=== PATIENT | male | born 1950 | race African-American/Black ===

== ENCOUNTER 2017-03-12 11:58 | Observation (INO) ==
[2017-03-12 12:36] LABS: Basophils # 0.1 10*3/uL (0.0-0.2); Basophils % 0.7 % (0.0-0.8); Eosinophils # 0.2 10*3/uL (0.0-0.87); Eosinophils % 1.9 % (0.00-10.9); Hemoglobin 13.1 GM/DL (14.0-18.0); Immature Granulocytes % 0.6 %; Immature Granulocytes Absolute 0.07 #; Lymphocytes # 3.7 10*3/uL (1.4-4.0); Lymphocytes % 30.7 % (21.2-54.2); Mean Corpuscular Hemoglobin 29 PG (27-34); Mean Corpuscular Volume 91.3 FL (87-102); Mean Platelet Volume 10.2 FL (9.6-12.0); Monocytes # 0.9 10*3/uL (0.11-0.8); Monocytes % 7.5 % (1.7-12.7); Neutrophils # 7.1 10*3/uL (1.4-7.4); Neutrophils % 58.6 % (38.7-73.9); Platelet Count 269 T/CUMM (130-400); Red Blood Count 4.49 MC/CUMM (3.8-5.5); Red Cell Distribution Width 13.2 % (9.3-17.3); White Blood Count 12.2 T/CUMM (4-12)
--- NOTE | 2017-03-12 12:37 | EKG Report ---
Stationary ECG Study [facility] Test Date: 03/12/2017 12:08:52 PM Pat Name: KENYON GRAMAJO Department: Room: Gender: M Social Science Analyst: Eddie Dudley : 1950 Requested by: Mark Stevens Order Number: [id number] Reading MD: HAYDEN ALLEN Intervals [place] Rate: 114 P: -83 [place]: 222 QRS: 34 QRSD: 150 T: -90 QT: 390 QTc: 458 Interpretive Statements ATRIAL TACHYCARDIA WITH FIRST DEGREE AV BLOCK NONSPECIFIC INTRAVENTRICULAR CONDUCTION BLOCK LOW VOLTAGE IN THE LIMB LEADS Electronically Signed On 03-14-17 07:55:17 CDT by HAYDEN ALLEN [email or web address]
[2017-03-12 12:48] LABS: INR 1.2; PT Patient Result 12.7 SECS
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
[2017-03-12 13:09] LABS: Partial Thromboplastin Time 43.2 SECS (0-40)
[2017-03-12 13:18] LABS: Free T4 (Free Thyroxine) 1.14 NG/DL (0.76-1.46); Magnesium 1.7 MG/DL (1.8-2.4)
[2017-03-12 13:23] LABS: Alanine Aminotransferase 69 U/L (16-61); Albumin 3.9 G/DL (3.4-5.0); Alkaline Phosphatase 65 U/L (45-117); Aspartate Amino Transferase 34 U/L (0-37); Bilirubin,Total < 0.39 MG/DL (0.2-1.0); Blood Urea Nitrogen 20 MG/DL (7-18); Calcium 9.5 MG/DL (8.5-10.1); Glucose 258 MG/DL (74-106); Osmolality,Calculated 288.5 MOS/KG (273-304); Potassium 4.7 MMOL/L (3.5-5.1); Sodium 139 MMOL/L (136-145); Total Protein 7.7 G/DL (6.4-8.3); Troponin I Only < 0.015 NG/ML (0.00-0.045)
[2017-03-12] MEDS ORDERED: DILTIAZEM 50 MG/10 ML VIAL IV STA (14:30)
[2017-03-12] MEDS ORDERED: DILTIAZEM 50 MG/10 ML VIAL IV ONE (14:34)
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
[2017-03-12] MEDS ORDERED: BUTALBITAL/ACETAMIN/CAFFEINE 50-325-40 MG TABLET PO PRN (15:16)
[2017-03-12] MEDS ORDERED: ACETAMINOPHEN 325 MG TABLET PO PRN (15:16)
[2017-03-12] MEDS ORDERED: ONDANSETRON 4 MG/2 ML VIAL IV PRN (15:17)
[2017-03-12] MEDS ORDERED: MAGNESIUM SULF RIDER 4 GM in PREMIX 1 EACH IV PRN (15:17)
[2017-03-12] MEDS ORDERED: ZALEPLON 5 MG CAPSULE PO PRN (15:17)
[2017-03-12] MEDS ORDERED: DOCUSATE SODIUM 100 MG CAPSULE PO PRN (15:17)
[2017-03-12] MEDS ORDERED: MAGNESIUM SULF RIDER 2 GM in PREMIX 1 EACH IV PRN (15:17)
--- NOTE | 2017-03-12 15:24 | Cardiology History & Physical ---
Assessment and Plan (1) Atrial flutter Status: Acute Assessment and plan: 1. 66-year-old BM with hypertension, dyslipidemia, IDDM, asthma/COPD recurrent atrial flutter for the last 9 months ("they shocked me twice"), incidentally noted to have atrial flutter with RVR at the [place] [facility] today, with heart rate between 115 120 bpm. 2. Given he is confident that he has been taking his Pradaxa, we can perform cardioversion today, and observe him on telemetry overnight. 3. Increase amiodarone to 200 mg twice daily, and give slow intravenous infusion of 0.5 L/min overnight. He is not actively wheezing but has a very prolonged expiratory phase 4. Give Lasix 1 IV I discussed with him the benefits of cardioversion versus attempts at rate control. He is agreeable to cardioversion as he will get better more quickly with this route. Current Visit: Yes (2) Chest pressure Status: Acute Current Visit: Yes History of Present Illness Chief complaint: tachycardia History of present illness: Mr. Alcala is a 66 year old male who is being seen for routine appointment at [facility]. He was noted to have tachycardia and was sent to the ER for evaluation. He has atrial flutter with rate between 10/11/2000 20. He reports he has [facility] in the [facility] [place] He does notice in the last 2-3 days he has had increased dyspnea on exertion "I have been using the nebulizer more". He has chronic orthopnea for years. He has no chest discomfort other than "I had 5 seconds of discomfort this morning at the clinic". He reports he takes his Pradaxa regularly for many months now. He was told he had the option of getting a procedure ( presumably ablation) at a later time of his flutter recurs. Home Medications Medication Instructions Recorded Confirmed Type Acetaminophen Tab [Tylenol Tab] 650 mg PO BID PRN 03/12/17 03/12/17 History Amiodarone Tab [Cordarone Tab] 200 mg PO DAILY 03/12/17 03/12/17 History Aspirin EC Tab 81 mg PO DAILY 03/12/17 03/12/17 History Atorvastatin Calcium 40 mg PO DAILY 03/12/17 03/12/17 History Budesonide/Formoterol 160-4.5 2 puff INH BID 03/12/17 03/12/17 History [Symbicort 160-4.5] Butalbital/Acet/Caff 50-325-40 1 tablet PO Q4H PRN 03/12/17 03/12/17 History [Fioricet 50-325-40 mg Tablet] Cyclobenzaprine HCl 5 mg PO DAILY 03/12/17 03/12/17 History Dabigatran [Pradaxa] 150 mg PO BID 03/12/17 03/12/17 History Fluoxetine HCl 10 mg PO DAILY 03/12/17 03/12/17 History Furosemide Tab [Lasix Tab] 40 mg PO DAILY 03/12/17 03/12/17 History Gabapentin 600 mg PO BID 03/12/17 03/12/17 History Insulin Aspart [NovoLOG] 15 unit SUBCUT TID 03/12/17 03/12/17 History Insulin Detemir [Levemir] 22 unit SUBCUT AC BREAKFAST 03/12/17 03/12/17 History Insulin Detemir [Levemir] 22 unit SUBCUT BEDTIME 03/12/17 03/12/17 History Metoprolol Tartrate Tab [Lopressor 50 mg PO BID 03/12/17 03/12/17 History Tab] Montelukast Tab [Singulair Tab] 10 mg PO DAILY 03/12/17 03/12/17 History Omeprazole [Prilosec] 40 mg PO DAILY 03/12/17 03/12/17 History Tiotropium Inhalation [Spiriva 18 mcg INH DAILY 03/12/17 03/12/17 History Handihaler] metFORMIN [Glucophage] 500 mg PO BID 03/12/17 03/12/17 History Allergies Allergy/AdvReac Type Severity Reaction Status Date / Time No Known Allergies Allergy Verified 03/12/17 11:59 Medical,Surgical,& Family Hx - Medical History Cardio: History of: Cardiac Dysrhythmia (afib), Hypertension Endocrine: History of: Diabetes Mellitus (IDDM), Diabetes Mellitus (NIDDM) Respiratory: History of: COPD - Social History Smoking Status: Never smoker Cardiology Physical Exam - Constitutional Vitals: Vital Signs Temp Pulse Resp BP Pulse Ox 97.2 F L 122 H 18 119/79 95 03/12/17 13:00 03/12/17 13:00 03/12/17 13:00 03/12/17 13:00 03/12/17 13:00 Intake and Output 03/11/17 03/12/17 03/12/17 23:59 07:59 15:59 Other: Weight 102.965 kg Patient Weight 03/12/17 23:59 Weight 102.965 kg General appearance: no acute distress, over weight - Head Head exam: Present: normal inspection, normocephalic, atraumatic - Neck Neck exam: Present: normal inspection - Respiratory Respiratory exam: Present: other (Very prolonged expiratory phase). Absent: rhonchi, stridor, wheezes - Cardiovascular Cardiovascular exam: Absent: diastolic murmur, rubs, systolic murmur - GI/Abdominal GI/Abdominal exam: Present: soft. Absent: tenderness - Extremities Exam Extremities exam: Present: other (Trace lower extremity edema) Result/EKG - Labs CBC & BMP: 03/12/17 12:15 03/12/17 12:15 Labs: Laboratory Results - last 24 hr 03/12/17 03/12/17 03/12/17 12:15 12:15 12:15 WBC 12.2 H RBC 4.49 Hgb 13.1 L Hct 41.0 L MCV 91.3 MCH 29 MCHC 32.0 RDW 13.2 Plt Count 269 MPV 10.2 Neut % (Auto) 58.6 Lymph % (Auto) 30.7 [place] % (Auto) 7.5 Eos % (Auto) 1.9 Baso % (Auto) 0.7 Neut # (Auto) 7.1 Lymph # (Auto) 3.7 [place] # (Auto) 0.9 H Eos # (Auto) 0.2 Baso # (Auto) 0.1 Immature Gran % 0.6 Nucleated RBC % 0.0 Immature Gran # 0.07 Nucleated RBCs # 0.00 INR 1.2 PT Patient/Control Mix 12.7 Circ Anticoag PTT 43.2 H Sodium Potassium Chloride Carbon Dioxide Anion Gap BUN Creatinine GFR Calculation BUN/Creatinine Ratio Glucose Calculated Osmolality Calcium Magnesium 1.7 L Total Bilirubin AST ALT Alkaline Phosphatase Troponin I Total Protein Albumin Globulin Albumin/Globulin Ratio Free T4 1.14 TSH 3rd Generation 03/12/17 12:15 WBC RBC Hgb Hct MCV MCH MCHC RDW Plt Count MPV Neut % (Auto) Lymph % (Auto) [place] % (Auto) Eos % (Auto) Baso % (Auto) Neut # (Auto) Lymph # (Auto) [place] # (Auto) Eos # (Auto) Baso # (Auto) Immature Gran % Nucleated RBC % Immature Gran # Nucleated RBCs # INR PT Patient/Control Mix Circ Anticoag PTT Sodium 139 Potassium 4.7 Chloride 104 Carbon Dioxide 28 Anion Gap 11.7 BUN 20 H Creatinine 1.20 GFR Calculation 82 BUN/Creatinine Ratio 16.00 Glucose 258 H Calculated Osmolality 288.5 Calcium 9.5 Magnesium Total Bilirubin < 0.39 AST 34 ALT 69 H Alkaline Phosphatase 65 Troponin I < 0.015 Total Protein 7.7 Albumin 3.9 Globulin 3.8 H Albumin/Globulin Ratio 1.0 L Free T4 TSH 3rd Generation 2.630
[2017-03-12] MEDS ORDERED: AMIODARONE 200 MG TABLET PO SCH (15:30)
[2017-03-12] MEDS ORDERED: NALOXONE 0.4 MG/ML VIAL ONE (16:37)
[2017-03-12] MEDS ORDERED: MIDAZOLAM 10 MG/2 ML VIAL ONE (16:37)
[2017-03-12] MEDS ORDERED: MEPERIDINE 50 MG/1 ML VIAL ONE (16:38)
[2017-03-12] MEDS ORDERED: FLUMAZENIL 0.5 MG/5 ML VIAL IV ONE (16:38)
--- NOTE | 2017-03-12 16:57 | Cardiology Operative Report ---
Date of Procedure:: 03/12/17 Post-op diagnosis: same Procedure: Procedure: DC cardioversion Indication: Persistent atrial flutter with RVR and CHF Anesthetic: Demerol/Versed Description: After patient sedated shock 1-250 J achieved sinus mechanism at 75 bpm. EKG ordered to confirm. Complications: None Anesthesia: moderate conscious sedation Surgeon / Physician: Roel Archibald Band Builder: other Estimated blood loss: minimal Specimens: none sent Condition: stable Disposition: floor
[2017-03-12] MEDS: AMIODARONE INJ 450 MG in DEXTROSE 5% 241 ML IV SCH (19:08)
[2017-03-12] MEDS ORDERED: FUROSEMIDE 40 MG/4 ML VIAL IV ONE (20:06)
[2017-03-12] MEDS ORDERED: DEXTROSE 50% 25 GM/50 ML VIAL IV PRN (20:09)
[2017-03-12] MEDS ORDERED: GLUCAGON 1 MG VIAL IM PRN (20:09)
[2017-03-12] MEDS ORDERED: METOPROLOL TARTRATE 50 MG TABLET PO SCH (21:00)
[2017-03-12] MEDS ORDERED: INSULIN DETEMIR 100 UNIT/ML SUBCUT SCH (21:00)
[2017-03-12] MEDS: IPRATROPIUM 500 MCG/2.5 ML NEB RESP TX SCH (21:02)
[2017-03-12] MEDS: GABAPENTIN 600 MG TABLET PO SCH (21:31)
[2017-03-12] MEDS: metFORMIN 500 MG TABLET PO SCH (21:31)
[2017-03-12] MEDS: METOPROLOL SUCCINATE XL 50 MG TABLET PO SCH (21:31)
[2017-03-12] MEDS: DABIGATRAN 150 MG CAPSULE PO SCH (21:31)
[2017-03-12] MEDS: INSULIN LISPRO 100 UNIT/ML SUBCUT SCH (21:32)
[2017-03-12] MEDS: AMIODARONE 200 MG TABLET PO SCH (21:32)
[2017-03-12] MEDS: BUDESONIDE/FORMOTEROL 160-4.5 INHALER 6 GM INH SCH (21:32)
[2017-03-13 04:58] LABS: Basophils % 0.4 % (0.0-0.8); Eosinophils # 0.3 10*3/uL (0.0-0.87); Eosinophils % 2.7 % (0.00-10.9); Hematocrit 37.3 VOL% (42.0-52.0); Hemoglobin 11.9 GM/DL (14.0-18.0); Immature Granulocytes % 0.5 %; Immature Granulocytes Absolute 0.05 #; Lymphocytes # 2.8 10*3/uL (1.4-4.0); Lymphocytes % 29.2 % (21.2-54.2); Mean Corpuscular HGB Conc 31.9 GM/DL (32-36); Mean Corpuscular Hemoglobin 29 PG (27-34); Mean Corpuscular Volume 91.4 FL (87-102); Mean Platelet Volume 10.6 FL (9.6-12.0); Monocytes # 1.1 10*3/uL (0.11-0.8); Monocytes % 11.7 % (1.7-12.7); Neutrophils # 5.4 10*3/uL (1.4-7.4); Neutrophils % 55.5 % (38.7-73.9); Platelet Count 237 T/CUMM (130-400); Red Blood Count 4.08 MC/CUMM (3.8-5.5); Red Cell Distribution Width 13.2 % (9.3-17.3); White Blood Count 9.7 T/CUMM (4-12)
[2017-03-13 05:46] LABS: Alanine Aminotransferase 57 U/L (16-61); Albumin 3.4 G/DL (3.4-5.0); Alkaline Phosphatase 53 U/L (45-117); Aspartate Amino Transferase 26 U/L (0-37); Bilirubin,Total < 0.39 MG/DL (0.2-1.0); Blood Urea Nitrogen 23 MG/DL (7-18); Calcium 8.8 MG/DL (8.5-10.1); Glucose 82 MG/DL (74-106); Magnesium 2.3 MG/DL (1.8-2.4); Potassium 3.8 MMOL/L (3.5-5.1); Sodium 143 MMOL/L (136-145); Total Protein 6.5 G/DL (6.4-8.3)
[2017-03-13] MEDS: IPRATROPIUM 500 MCG/2.5 ML NEB RESP TX SCH ×3 (07:37→14:05)
[2017-03-13] MEDS ORDERED: NON-FORMULARY MEDICATION (Omeprazole [Prilosec] 40 MG) PO SCH (09:00)
[2017-03-13] MEDS ORDERED: FUROSEMIDE 40 MG TABLET PO SCH (09:00)
[2017-03-13] MEDS ORDERED: ASPIRIN EC 81 MG TABLET PO SCH (09:00)
[2017-03-13] MEDS ORDERED: INSULIN GLARGINE 100 UNIT/ML SUBCUT SCH (09:00)
[2017-03-13] MEDS ORDERED: ATORVASTATIN 40 MG TABLET PO SCH (09:00)
[2017-03-13] MEDS ORDERED: MONTELUKAST 10 MG TABLET PO SCH (09:00)
[2017-03-13] MEDS ORDERED: FLUoxetine 10 MG CAPSULE PO SCH (09:00)
[2017-03-13] MEDS ORDERED: PANTOPRAZOLE 40 MG TABLET PO SCH (09:00)
[2017-03-13] MEDS ORDERED: CYCLOBENZAPRINE 10 MG TABLET PO SCH (09:00)
--- NOTE | 2017-03-13 09:11 | EKG Report ---
Stationary ECG Study [facility] Test Date: 03/13/2017 8:05:19 AM Pat Name: KENYON GRAMAJO Department: Room: 276 Gender: M [employer] Assistant Football Coach: JOAO : 1950 Requested by: Roel Flores Order Number: [id number] Reading MD: HAYDEN ALLEN Intervals [place] Rate: 69 P: 60 [place]: 184 QRS: 15 QRSD: 88 T: 31 QT: 382 QTc: 402 Interpretive Statements SINUS RHYTHM NONSPECIFIC T-WAVE ABNORMALITY Electronically Signed On 03-14-17 08:22:07 CDT by HAYDEN ALLEN [email or web address]
--- NOTE | 2017-03-13 09:24 | EKG Report ---
Stationary ECG Study [facility] Test Date: 03/12/2017 5:00:20 PM Pat Name: KENYON GRAMAJO Department: Room: 276 Gender: M Personnel Clerk: : 1950 Requested by: Roel Flores Order Number: [id number] Thelma MD: HAYDEN ALLEN Intervals [place] Rate: 81 P: 70 [place]: 160 QRS: 43 QRSD: 90 T: 62 QT: 315 QTc: 352 Interpretive Statements SINUS RHYTHM NONSPECIFIC T WAVE ABNORMALITY Electronically Signed On 03-14-17 08:18:15 CDT by HAYDEN ALLEN [email or web address]
[2017-03-13] MEDS: DABIGATRAN 150 MG CAPSULE PO SCH (09:36)
[2017-03-13] MEDS: metFORMIN 500 MG TABLET PO SCH (09:36)
[2017-03-13] MEDS: GABAPENTIN 600 MG TABLET PO SCH (09:38)
[2017-03-13] MEDS: AMIODARONE 200 MG TABLET PO SCH (09:39)
[2017-03-13] MEDS: INSULIN LISPRO 100 UNIT/ML SUBCUT SCH ×2 (09:43→14:34)
--- NOTE | 2017-03-13 11:29 | Discharge Summary ---
Hospital Course - Hospital Course Hospital Course: Mr. Alcala was admitted yesterday evening with atrial flutter and RVR which was found incidentally, but he did have noticed some increased dyspnea on exertion when history was taken. I cardioverted him to normal sinus rhythm yesterday evening and he is maintained throughout the night. I gave him some IV amiodarone at 0.5 mg/h during the night and increase his amiodarone to 200 mg twice daily. I placed him on Toprol 50 minutes twice daily to try to help maintain sinus. Given he has been cardioverted twice in the last 9 months previously we will need to have him see [facility] tractor engine [facility] in the next couple weeks to decide if they want to make any further adjustments, to note if he is still in rhythm. He reports that he feels "great" with no complaints. He examining the room without difficulty. Diagnosis - Discharge Diagnosis (1) Atrial flutter Status: Acute (2) Chest pressure Status: Acute Discharge Plan - Discharge Medications No Action Tiotropium Inhalation [Spiriva Handihaler] 18 mcg INH DAILY Montelukast Tab [Singulair Tab] 10 mg PO DAILY metFORMIN [Glucophage] 500 mg PO BID Metoprolol Tartrate Tab [Lopressor Tab] 50 mg PO BID Insulin Aspart [NovoLOG] 15 unit SUBCUT TID Insulin Detemir [Levemir] 22 unit SUBCUT AC BREAKFAST Gabapentin 600 mg PO BID Fluoxetine HCl 10 mg PO DAILY Dabigatran [Pradaxa] 150 mg PO BID Cyclobenzaprine HCl 5 mg PO DAILY Budesonide/Formoterol 160-4.5 [Symbicort 160-4.5] 2 puff INH BID Butalbital/Acet/Caff 50-325-40 [Fioricet 50-325-40 mg Tablet] 1 tablet PO Q4H PRN PRN Reason: Headache Acetaminophen Tab [Tylenol Tab] 650 mg PO BID PRN PRN Reason: Pain Amiodarone Tab [Cordarone Tab] 200 mg PO DAILY Omeprazole [Prilosec] 40 mg PO DAILY Insulin Detemir [Levemir] 22 unit SUBCUT BEDTIME Furosemide Tab [Lasix Tab] 40 mg PO DAILY Atorvastatin Calcium 40 mg PO DAILY Aspirin EC Tab 81 mg PO DAILY - Follow Up or Referral - Forms/Instructions Exam - Constitutional Vitals: Period Temp Pulse Resp BP Sys/Asencio Pulse Ox Last 24 Hr 97.1 F-98.2 F 68-123 16-18 99-127/57-93 93-100 General appearance: no acute distress, over weight - Head Head exam: Present: normal inspection, normocephalic, atraumatic - Neck Neck exam: Present: normal inspection - Respiratory Respiratory exam: Absent: rales, stridor, wheezes - Cardiovascular Cardiovascular exam: Present: regular rate and rhythm. Absent: diastolic murmur , rubs - GI/Abdominal GI/Abdominal exam: Present: soft. Absent: tenderness - Extremities Exam Extremities exam: Absent: edema Discharge Results Labs on day of discharge: Labs from last 24 hours 03/13/17 03/13/17 03/13/17 07:38 04:07 04:07 WBC 9.7 RBC 4.08 Hgb 11.9 L Hct 37.3 L MCV 91.4 MCH 29 MCHC 31.9 L RDW 13.2 Plt Count 237 MPV 10.6 Neut % (Auto) 55.5 Lymph % (Auto) 29.2 [place] % (Auto) 11.7 Eos % (Auto) 2.7 Baso % (Auto) 0.4 Neut # (Auto) 5.4 Lymph # (Auto) 2.8 [place] # (Auto) 1.1 H Eos # (Auto) 0.3 Baso # (Auto) 0.0 Immature Gran % 0.5 Nucleated RBC % 0.0 Immature Gran # 0.05 Nucleated RBCs # 0.00 INR PT Patient/Control Mix Circ Anticoag PTT Sodium 143 Potassium 3.8 Chloride 106 Carbon Dioxide 29 Anion Gap 11.8 BUN 23 H Creatinine 1.00 GFR Calculation 118 BUN/Creatinine Ratio 23.00 H Glucose 82 POC Glucose 125 H Calculated Osmolality 287.0 Calcium 8.8 Magnesium 2.3 Total Bilirubin < 0.39 AST 26 ALT 57 Alkaline Phosphatase 53 Troponin I Total Protein 6.5 Albumin 3.4 Globulin 3.1 Albumin/Globulin Ratio 1.0 L Free T4 TSH 3rd Generation 1.810 03/12/17 03/12/17 03/12/17 19:22 12:15 12:15 WBC 12.2 H RBC 4.49 Hgb 13.1 L Hct 41.0 L MCV 91.3 MCH 29 MCHC 32.0 RDW 13.2 Plt Count 269 MPV 10.2 Neut % (Auto) 58.6 Lymph % (Auto) 30.7 [place] % (Auto) 7.5 Eos % (Auto) 1.9 Baso % (Auto) 0.7 Neut # (Auto) 7.1 Lymph # (Auto) 3.7 [place] # (Auto) 0.9 H Eos # (Auto) 0.2 Baso # (Auto) 0.1 Immature Gran % 0.6 Nucleated RBC % 0.0 Immature Gran # 0.07 Nucleated RBCs # 0.00 INR PT Patient/Control Mix Circ Anticoag PTT Sodium 139 Potassium 4.7 Chloride 104 Carbon Dioxide 28 Anion Gap 11.7 BUN 20 H Creatinine 1.20 GFR Calculation 82 BUN/Creatinine Ratio 16.00 Glucose 258 H POC Glucose 170 H Calculated Osmolality 288.5 Calcium 9.5 Magnesium Total Bilirubin < 0.39 AST 34 ALT 69 H Alkaline Phosphatase 65 Troponin I < 0.015 Total Protein 7.7 Albumin 3.9 Globulin 3.8 H Albumin/Globulin Ratio 1.0 L Free T4 TSH 3rd Generation 2.630 03/12/17 03/12/17 12:15 12:15 WBC RBC Hgb Hct MCV MCH MCHC RDW Plt Count MPV Neut % (Auto) Lymph % (Auto) [place] % (Auto) Eos % (Auto) Baso % (Auto) Neut # (Auto) Lymph # (Auto) [place] # (Auto) Eos # (Auto) Baso # (Auto) Immature Gran % Nucleated RBC % Immature Gran # Nucleated RBCs # INR 1.2 PT Patient/Control Mix 12.7 Circ Anticoag PTT 43.2 H Sodium Potassium Chloride Carbon Dioxide Anion Gap BUN Creatinine GFR Calculation BUN/Creatinine Ratio Glucose POC Glucose Calculated Osmolality Calcium Magnesium 1.7 L Total Bilirubin AST ALT Alkaline Phosphatase Troponin I Total Protein Albumin Globulin Albumin/Globulin Ratio Free T4 1.14 TSH 3rd Generation DS: Provider Date of admission: 03/12/17 15:15 Primary care physician: Nicky Orr Attending physician on admission: Roel Prakash Discharging clinician: Roel Prakash
[2017-03-13] MEDS: METOPROLOL SUCCINATE XL 50 MG TABLET PO SCH (11:30)
[2017-03-13] MEDS: BUDESONIDE/FORMOTEROL 160-4.5 INHALER 6 GM INH SCH (11:30)
[2017-03-13 16:21] VITALS: BP 140/70
[2017-03-17] MEDS: AMIODARONE INJ 450 MG in DEXTROSE 5% 241 ML IV SCH (09:51)
== END 2017-03-13 17:08 | disposition home or self-care (01) ==
LOC: N.EDINP 11:58 → N.ED 11:58 → N.TELES 15:42
PROVIDERS: ADMIT Internal Medicine Cardiovascular Disease; ATTEND Internal Medicine Cardiovascular Disease

== ENCOUNTER 2020-08-19 17:18 | Observation (INO) ==
[2020-08-19] MEDS ORDERED: methylPREDNISolone SOD SUC 125 MG/2 ML VIAL IV STA (18:19)
[2020-08-19] MEDS ORDERED: PIPERACILLIN/TAZOBACTAM 3,375 MG in SODIUM CHLORIDE 0.9% 100 ML IV STA (18:19)
[2020-08-19] MEDS ORDERED: ONDANSETRON 4 MG/2 ML VIAL IV STA (18:19)
[2020-08-19] MEDS ORDERED: ALBUTEROL/IPRATROPIUM 3 ML NEB RESP TX STA (18:19)
[2020-08-19 18:38] LABS: Basophils # 0.1 10*3/uL (0.0-0.2); Basophils % 0.6 % (0.0-0.8); Eosinophils # 0.4 10*3/uL (0.0-0.87); Eosinophils % 2.5 % (0.00-10.9); Hematocrit 37.7 VOL% (42.0-52.0); Hemoglobin 11.7 GM/DL (14.0-18.0); Immature Granulocytes % 0.4 %; Immature Granulocytes Absolute 0.07 #; Lymphocytes # 3.9 10*3/uL (1.4-4.0); Lymphocytes % 25.1 % (21.2-54.2); Mean Corpuscular Volume 86.3 FL (87-102); Mean Platelet Volume 10.5 FL (9.6-12.0); Monocytes % 10.4 % (1.7-12.7); Platelet Count 391 T/CUMM (130-400); Red Blood Count 4.37 MC/CUMM (3.8-5.5); Red Cell Distribution Width 13.6 % (9.3-17.3); White Blood Count 15.6 T/CUMM (4-12)
[2020-08-19 18:45] LABS: INR 1.1; PT Patient Result 11.5 SECS (9.8-11.9)
[2020-08-19 18:54] LABS: Alanine Aminotransferase 17 U/L (16-61); Albumin 3.6 G/DL (3.4-5.0); Alkaline Phosphatase 92 U/L (45-117); Aspartate Amino Transferase 12 U/L (0-37); Blood Urea Nitrogen 24 MG/DL (7-18); Calcium 8.8 MG/DL (8.5-10.1); Carbon Dioxide 28 MMOL/L (21-32); Estimated Glom Filtration Rate 76 ML/MIN; Glucose 158 MG/DL (74-106); Osmolality,Calculated 283.5 MOS/KG (273-304); Sodium 139 MMOL/L (136-145); Total Protein 7.5 G/DL (6.4-8.3)
[2020-08-19 20:23] LABS: Bilirubin,Urine Negative (Negative); Blood, Urine Negative (Negative); Glucose,Urine (UA) Negative (Negative); Hyaline Casts,Urine 1 /LPF (0-3); Ketones,Urine Negative (Negative); Mucus,Urine Occasional /LPF (Occasional); Nitrite,Urine Negative (Negative); Protein,Urine Negative; RBC,Urine 2 /HPF (0-4); Squamous Epithelial Cell,Urine Occasional /HPF (0-10); Urine Appearance CLEAR (Clear); Urine Color Yellow (Yellow); Urine Specific Gravity 1.025 (1.001-1.035); Urine Urobilinogen < 2.0 EU/DL (0.2-1.0); WBC,Urine 3 /HPF (0-6)
[2020-08-19] MEDS ORDERED: ACETAMINOPHEN 325 MG TABLET PO PRN (21:05)
[2020-08-19] MEDS ORDERED: DEXTROSE 50% 25 GM/50 ML VIAL IV PRN ×2 (21:05)
[2020-08-19] MEDS ORDERED: GLUCAGON 1 MG VIAL IM PRN ×2 (21:05)
[2020-08-19] MEDS ORDERED: ONDANSETRON 4 MG/2 ML VIAL IV PRN (21:05)
[2020-08-20] MEDS: ALBUTEROL/IPRATROPIUM 3 ML NEB RESP TX SCH ×7 (00:36→23:53)
[2020-08-20] MEDS: SODIUM CHLORIDE 0.9% 1,000 ML IV SCH ×2 (01:12→21:41)
[2020-08-20] MEDS ORDERED: PIPERACILLIN/TAZOBACTAM 3,375 MG in SODIUM CHLORIDE 0.9% 100 ML IV SCH (03:00)
[2020-08-20] MEDS ORDERED: methylPREDNISolone SOD SUC 40 MG/1 ML VIAL IV SCH ×2 (03:00→21:00)
[2020-08-20] MEDS ORDERED: IPRATROPIUM 500 MCG/2.5 ML NEB RESP TX SCH (07:00)
[2020-08-20 08:18] LABS: Basophils % 0.1 % (0.0-0.8); Hematocrit 36.6 VOL% (42.0-52.0); Hemoglobin 11.1 GM/DL (14.0-18.0); Immature Granulocytes % 0.4 %; Immature Granulocytes Absolute 0.06 #; Lymphocytes # 1.1 10*3/uL (1.4-4.0); Lymphocytes % 7.8 % (21.2-54.2); Mean Corpuscular HGB Conc 30.3 GM/DL (32-36); Mean Corpuscular Volume 88.6 FL (87-102); Mean Platelet Volume 10.5 FL (9.6-12.0); Monocytes % 1.2 % (1.7-12.7); Neutrophils % 90.5 % (38.7-73.9); Platelet Count 371 T/CUMM (130-400); Red Blood Count 4.13 MC/CUMM (3.8-5.5); Red Cell Distribution Width 13.5 % (9.3-17.3); White Blood Count 13.7 T/CUMM (4-12)
[2020-08-20 08:43] LABS: Calcium 9.8 MG/DL (8.5-10.1); Osmolality,Calculated 290.8 MOS/KG (273-304); Potassium 4.6 MMOL/L (3.5-5.1)
[2020-08-20] MEDS: INSULIN REGULAR 100 UNIT/ML SUBCUT SCH ×4 (09:01→21:41)
[2020-08-20] MEDS: MONTELUKAST 10 MG TABLET PO SCH (09:01)
[2020-08-20] MEDS: METOPROLOL SUCCINATE XL 25 MG TABLET PO SCH (09:01)
[2020-08-20] MEDS: SPIRONOLACTONE 25 MG TABLET PO SCH (09:01)
[2020-08-20] MEDS: BUDESONIDE/FORMOTEROL 160-4.5 INHALER 6 GM INH SCH ×2 (09:02→21:43)
[2020-08-20] MEDS: GABAPENTIN 600 MG TABLET PO SCH ×2 (09:02→21:41)
[2020-08-20] MEDS: metFORMIN 500 MG TABLET PO SCH ×2 (09:02→21:41)
[2020-08-20] MEDS: FUROSEMIDE 40 MG TABLET PO SCH (09:02)
[2020-08-20] MEDS: DABIGATRAN 150 MG CAPSULE PO SCH ×2 (09:02→21:41)
[2020-08-20] MEDS: AZITHROMYCIN 250 MG TABLET PO SCH (09:11)
[2020-08-20] MEDS: cefTRIAXone 1,000 MG in SYRINGE 1 EACH IV SCH (09:12)
[2020-08-20] MEDS ORDERED: ATORVASTATIN 40 MG TABLET PO SCH (21:00)
[2020-08-21] MEDS: ALBUTEROL/IPRATROPIUM 3 ML NEB RESP TX SCH ×2 (03:59→07:15)
[2020-08-21 07:29] VITALS: BP 134/63
[2020-08-21] MEDS: FUROSEMIDE 40 MG TABLET PO SCH (08:51)
[2020-08-21] MEDS: GABAPENTIN 600 MG TABLET PO SCH (08:51)
[2020-08-21] MEDS: SPIRONOLACTONE 25 MG TABLET PO SCH (08:51)
[2020-08-21] MEDS: MONTELUKAST 10 MG TABLET PO SCH (08:52)
[2020-08-21] MEDS: metFORMIN 500 MG TABLET PO SCH (08:52)
[2020-08-21] MEDS: METOPROLOL SUCCINATE XL 25 MG TABLET PO SCH (08:52)
[2020-08-21] MEDS: DABIGATRAN 150 MG CAPSULE PO SCH (08:52)
[2020-08-21] MEDS: INSULIN REGULAR 100 UNIT/ML SUBCUT SCH (08:52)
[2020-08-21] MEDS: AZITHROMYCIN 250 MG TABLET PO SCH (08:52)
[2020-08-21] MEDS: cefTRIAXone 1,000 MG in SYRINGE 1 EACH IV SCH (08:53)
[2020-08-21] MEDS: BUDESONIDE/FORMOTEROL 160-4.5 INHALER 6 GM INH SCH (08:54)
== END 2020-08-21 13:15 | disposition home or self-care (01) ==
LOC: N.ED 17:18 → N.EDINP 17:18 → N.5E 21:46
PROVIDERS: ADMIT Internal Medicine Geriatric Medicine; ATTEND Internal Medicine Geriatric Medicine

== ENCOUNTER 2021-08-04 17:33 | Inpatient (IN) ==
[2021-08-04] MEDS ORDERED: MORPHINE 2 MG/1 ML SYRINGE IV STA (19:02)
[2021-08-04] MEDS ORDERED: FUROSEMIDE 100 MG/10 ML VIAL IV STA (19:02)
[2021-08-04] MEDS ORDERED: methylPREDNISolone SOD SUC 125 MG/2 ML VIAL IV STA (19:02)
[2021-08-04] MEDS ORDERED: DILTIAZEM 50 MG/10 ML VIAL IV STA ×2 (19:02→19:41)
[2021-08-04] MEDS ORDERED: ONDANSETRON 4 MG/2 ML VIAL IV STA (19:02)
[2021-08-04] MEDS ORDERED: ASPIRIN 325 MG TABLET PO STA (19:02)
[2021-08-04] MEDS ORDERED: ALBUTEROL NEB SOLN 5 MG/ML 20 ML/BOTTLE CONT NEB SCH (19:30)
[2021-08-04] MEDS ORDERED: PIPERACILLIN/TAZOBACTAM 3,375 MG in SODIUM CHLORIDE 0.9% 100 ML IV STA (19:41)
[2021-08-04 19:58] LABS: Basophils # 0.1 10*3/uL (0.0-0.2); Basophils % 0.2 % (0.0-0.8); Eosinophils % 0.1 % (0.00-10.9); Hematocrit 45.8 VOL% (42.0-52.0); Hemoglobin 13.7 GM/DL (14.0-18.0); Immature Granulocytes % 1.1 %; Immature Granulocytes Absolute 0.39 #; Lymphocytes # 4.1 10*3/uL (1.4-4.0); Lymphocytes % 11.4 % (21.2-54.2); Mean Corpuscular HGB Conc 29.9 GM/DL (32-36); Mean Corpuscular Volume 91.2 FL (87-102); Monocytes % 7.2 % (1.7-12.7); Platelet Count 362 T/CUMM (130-400); Red Blood Count 5.02 MC/CUMM (3.8-5.5); Red Cell Distribution Width 12.3 % (9.3-17.3); White Blood Count 36.3 T/CUMM (4-12)
[2021-08-04 20:04] LABS: Albumin 3.8 G/DL (3.4-5.0); Bilirubin,Total 0.4 MG/DL (0.20-1.00); Calcium 10.7 MG/DL (8.5-10.1); Osmolality,Calculated 270.2 MOS/KG (273-304); Potassium 3.8 MMOL/L (3.5-5.1); Total Protein 8.4 G/DL (6.4-8.2)
[2021-08-04 20:07] LABS: PT Patient Result 11.5 SECS (10.5-12.0)
[2021-08-04 20:25] LABS: Bilirubin,Urine Negative (Negative); Blood, Urine Negative (Negative); Glucose,Urine (UA) Negative (Negative); Ketones,Urine Negative (Negative); Mucus,Urine Occasional /LPF (Occasional); Nitrite,Urine Negative (Negative); Protein,Urine Negative; RBC,Urine 7 /HPF (0-4); Squamous Epithelial Cell,Urine Occasional /HPF (0-10); Urine Appearance CLOUDY (Clear); Urine Color Yellow (Yellow); Urine Specific Gravity 1.019 (1.001-1.035); Urine Urobilinogen < 2.0 EU/DL (0.2-1.0)
[2021-08-04 21:33] LABS: Band Neutrophils 1 % (0-10); Lymphocytes 15 % (20-55); Platelet Estimate Normal; Segmented Neutrophils 77 % (50-85); Total Cells Counted 100
[2021-08-04] MEDS ORDERED: GLUCAGON 1 MG VIAL IM PRN (22:56)
[2021-08-04] MEDS ORDERED: MORPHINE 2 MG/1 ML SYRINGE IV PRN (22:56)
[2021-08-04] MEDS ORDERED: DEXTROSE 50% 25 GM/50 ML VIAL IV PRN (22:56)
[2021-08-04] MEDS ORDERED: ACETAMINOPHEN 325 MG TABLET PO PRN (22:56)
[2021-08-05] MEDS: ALBUTEROL/IPRATROPIUM 3 ML NEB RESP TX SCH ×4 (00:14→20:00)
[2021-08-05 05:42] LABS: Basophils % 0.1 % (0.0-0.8); Hematocrit 40.6 VOL% (42.0-52.0); Hemoglobin 12.7 GM/DL (14.0-18.0); Immature Granulocytes % 0.7 %; Lymphocytes # 1.2 10*3/uL (1.4-4.0); Lymphocytes % 3.9 % (21.2-54.2); Mean Corpuscular HGB Conc 31.3 GM/DL (32-36); Mean Corpuscular Volume 91.2 FL (87-102); Mean Platelet Volume 10.5 FL (9.6-12.0); Monocytes % 3.5 % (1.7-12.7); Neutrophils % 91.8 % (38.7-73.9); Platelet Count 285 T/CUMM (130-400); Red Blood Count 4.45 MC/CUMM (3.8-5.5); Red Cell Distribution Width 12.5 % (9.3-17.3); White Blood Count 29.7 T/CUMM (4-12)
[2021-08-05 05:52] LABS: Calcium 9.7 MG/DL (8.5-10.1); Osmolality,Calculated 285.4 MOS/KG (273-304); Potassium 4.9 MMOL/L (3.5-5.1)
[2021-08-05] MEDS: PIPERACILLIN/TAZOBACTAM 3,375 MG in SODIUM CHLORIDE 0.9% 100 ML IV SCH ×3 (06:22→21:19)
[2021-08-05] MEDS: INSULIN REGULAR 100 UNIT/ML SUBCUT SCH ×2 (08:28→11:45)
[2021-08-05] MEDS ORDERED: PANTOPRAZOLE 40 MG TABLET PO SCH (09:00)
[2021-08-05] MEDS ORDERED: methylPREDNISolone SOD SUC 125 MG/2 ML VIAL IV SCH ×2 (09:00→11:00)
[2021-08-05] MEDS ORDERED: ENOXAPARIN 40 MG/0.4 ML SYRINGE SUBCUT SCH (09:00)
[2021-08-05] MEDS ORDERED: DILTIAZEM CD 120 MG CAPSULE PO SCH (14:03)
[2021-08-05] MEDS ORDERED: ALBUTEROL 2.5 MG/3 ML NEB RESP TX PRN (14:03)
[2021-08-05] MEDS ORDERED: NITROGLYCERIN SL 0.4 MG TABLET SL PRN (14:03)
[2021-08-05] MEDS ORDERED: DEXTROSE 50% 25 GM/50 ML VIAL IV PRN (14:07)
[2021-08-05] MEDS ORDERED: GLUCAGON 1 MG VIAL IM PRN (14:07)
[2021-08-05] MEDS: INSULIN LISPRO 100 UNIT/ML SUBCUT SCH ×3 (16:03→21:14)
[2021-08-05] MEDS: metFORMIN 500 MG TABLET PO SCH (16:03)
[2021-08-05] MEDS: SOTALOL 80 MG TABLET PO SCH (21:13)
[2021-08-05] MEDS: LOSARTAN 25 MG TABLET PO SCH (21:13)
[2021-08-05] MEDS: DABIGATRAN 150 MG CAPSULE PO SCH (21:13)
[2021-08-05] MEDS: PANTOPRAZOLE 40 MG TABLET PO SCH (21:13)
[2021-08-05] MEDS: FLUTICASONE/SALMETEROL 500-50 DISKUS 14 DOSE INH SCH (21:13)
[2021-08-05] MEDS: ATORVASTATIN 40 MG TABLET PO SCH (21:13)
[2021-08-05] MEDS: INSULIN GLARGINE 100 UNIT/ML SUBCUT SCH (21:14)
[2021-08-06] MEDS: ALBUTEROL/IPRATROPIUM 3 ML NEB RESP TX SCH ×4 (00:20→19:17)
[2021-08-06] MEDS: PIPERACILLIN/TAZOBACTAM 3,375 MG in SODIUM CHLORIDE 0.9% 100 ML IV SCH ×3 (04:56→21:25)
[2021-08-06 05:19] LABS: Basophils # 0.1 10*3/uL (0.0-0.2); Basophils % 0.2 % (0.0-0.8); Eosinophils % 0.1 % (0.00-10.9); Hematocrit 41.5 VOL% (42.0-52.0); Hemoglobin 12.9 GM/DL (14.0-18.0); Immature Granulocytes % 0.8 %; Immature Granulocytes Absolute 0.21 #; Lymphocytes # 3.2 10*3/uL (1.4-4.0); Mean Corpuscular HGB Conc 31.1 GM/DL (32-36); Mean Corpuscular Volume 92.4 FL (87-102); Mean Platelet Volume 11.2 FL (9.6-12.0); Monocytes % 7.5 % (1.7-12.7); Neutrophils % 79.4 % (38.7-73.9); Platelet Count 210 T/CUMM (130-400); Red Blood Count 4.49 MC/CUMM (3.8-5.5); Red Cell Distribution Width 12.7 % (9.3-17.3); White Blood Count 26.6 T/CUMM (4-12)
[2021-08-06 05:53] LABS: Hypochromasia 1+; Lymphocytes 9 % (20-55); Microcytosis Slight; Ovalocytes Slight; Platelet Estimate Normal; Segmented Neutrophils 83 % (50-85); Total Cells Counted 100
[2021-08-06 05:57] LABS: Calcium 9.7 MG/DL (8.5-10.1); Potassium 5.7 MMOL/L (3.5-5.1)
[2021-08-06] MEDS ORDERED: FERROUS SULFATE 325 MG TABLET PO SCH (08:00)
[2021-08-06] MEDS ORDERED: NON-FORMULARY MEDICATION (Tiotropium Bromide [Spiriva With Handihaler] 18 mcg Capsule, W/I INH SCH (09:00)
[2021-08-06] MEDS ORDERED: SPIRONOLACTONE 25 MG TABLET PO SCH (09:00)
[2021-08-06] MEDS: DABIGATRAN 150 MG CAPSULE PO SCH ×2 (09:48→21:21)
[2021-08-06] MEDS: MULTIVITAMIN (CENTRUM) TABLET PO SCH (09:48)
[2021-08-06] MEDS: PANTOPRAZOLE 40 MG TABLET PO SCH ×2 (09:48→21:21)
[2021-08-06] MEDS: VERAPAMIL SR 180 MG TABLET PO SCH (09:48)
[2021-08-06] MEDS: MAGNESIUM CHLORIDE 64 MG TABLET PO SCH (09:48)
[2021-08-06] MEDS: metFORMIN 500 MG TABLET PO SCH ×2 (09:48→16:44)
[2021-08-06] MEDS: SOTALOL 80 MG TABLET PO SCH ×2 (09:49→21:21)
[2021-08-06] MEDS: CHOLECALCIFEROL 1,000 UNIT TABLET PO SCH (09:49)
[2021-08-06] MEDS: predniSONE 20 MG TABLET PO SCH (09:49)
[2021-08-06] MEDS: OMEGA 3 ACID ETHYL ESTERS 1 GM CAPSULE PO SCH (09:49)
[2021-08-06] MEDS: INSULIN GLARGINE 100 UNIT/ML SUBCUT SCH ×2 (09:51→21:22)
[2021-08-06] MEDS: FUROSEMIDE 40 MG TABLET PO SCH (09:57)
[2021-08-06] MEDS: FLUTICASONE/SALMETEROL 500-50 DISKUS 14 DOSE INH SCH ×2 (10:53→21:21)
[2021-08-06] MEDS: INSULIN LISPRO 100 UNIT/ML SUBCUT SCH ×7 (10:53→21:22)
[2021-08-06] MEDS ORDERED: MONTELUKAST 10 MG TABLET PO SCH (21:00)
[2021-08-06] MEDS: LOSARTAN 25 MG TABLET PO SCH (21:21)
[2021-08-06] MEDS: ATORVASTATIN 40 MG TABLET PO SCH (21:21)
[2021-08-07] MEDS: ALBUTEROL/IPRATROPIUM 3 ML NEB RESP TX SCH ×3 (00:24→13:40)
[2021-08-07 04:53] LABS: Basophils % 0.1 % (0.0-0.8); Eosinophils % 0.2 % (0.00-10.9); Hematocrit 42.2 VOL% (42.0-52.0); Hemoglobin 12.8 GM/DL (14.0-18.0); Immature Granulocytes % 0.9 %; Immature Granulocytes Absolute 0.19 #; Lymphocytes # 2.9 10*3/uL (1.4-4.0); Lymphocytes % 13.9 % (21.2-54.2); Mean Corpuscular HGB Conc 30.3 GM/DL (32-36); Mean Corpuscular Volume 91.5 FL (87-102); Monocytes % 7.4 % (1.7-12.7); Neutrophils % 77.5 % (38.7-73.9); Platelet Count 310 T/CUMM (130-400); Red Blood Count 4.61 MC/CUMM (3.8-5.5); Red Cell Distribution Width 12.4 % (9.3-17.3); White Blood Count 20.9 T/CUMM (4-12)
[2021-08-07] MEDS: PIPERACILLIN/TAZOBACTAM 3,375 MG in SODIUM CHLORIDE 0.9% 100 ML IV SCH ×2 (05:15→14:40)
[2021-08-07 05:16] LABS: Lymphocytes 15 % (20-55); Platelet Estimate Adequate; Segmented Neutrophils 82 % (50-85); Total Cells Counted 100
[2021-08-07 05:17] LABS: Hypochromasia Slight; Microcytosis Slight
[2021-08-07] MEDS: INSULIN LISPRO 100 UNIT/ML SUBCUT SCH ×6 (07:20→15:10)
[2021-08-07] MEDS ORDERED: BACILLUS COAGULANS CAPLET PO SCH (09:00)
[2021-08-07 09:25] LABS: Osmolality,Calculated 279.5 MOS/KG (273-304); Potassium 3.8 MMOL/L (3.5-5.1)
[2021-08-07] MEDS: INSULIN GLARGINE 100 UNIT/ML SUBCUT SCH (10:05)
[2021-08-07] MEDS: FUROSEMIDE 40 MG TABLET PO SCH (10:21)
[2021-08-07] MEDS: PANTOPRAZOLE 40 MG TABLET PO SCH (10:21)
[2021-08-07] MEDS: OMEGA 3 ACID ETHYL ESTERS 1 GM CAPSULE PO SCH (10:21)
[2021-08-07] MEDS: CHOLECALCIFEROL 1,000 UNIT TABLET PO SCH (10:23)
[2021-08-07] MEDS: SOTALOL 80 MG TABLET PO SCH (10:23)
[2021-08-07] MEDS: VERAPAMIL SR 180 MG TABLET PO SCH (10:24)
[2021-08-07] MEDS: predniSONE 20 MG TABLET PO SCH (10:25)
[2021-08-07] MEDS: DABIGATRAN 150 MG CAPSULE PO SCH (10:25)
[2021-08-07] MEDS: metFORMIN 500 MG TABLET PO SCH ×2 (10:26→15:10)
[2021-08-07] MEDS: MAGNESIUM CHLORIDE 64 MG TABLET PO SCH (10:26)
[2021-08-07] MEDS: MULTIVITAMIN (CENTRUM) TABLET PO SCH (10:28)
[2021-08-07] MEDS: FLUTICASONE/SALMETEROL 500-50 DISKUS 14 DOSE INH SCH (10:33)
[2021-08-07 11:57] VITALS: BP 138/76
== END 2021-08-07 17:40 | disposition home health service (06) | DRG 194 ==
LOC: N.ED 17:33 → N.EDINP 23:31 → N.3E 23:49
PROVIDERS: ADMIT Internal Medicine; ATTEND Internal Medicine

== ENCOUNTER 2021-08-25 17:09 | Inpatient (IN) ==
[2021-08-25] MEDS ORDERED: SODIUM CHLORIDE 0.9% 1,000 ML IV STA (18:01)
[2021-08-25] MEDS ORDERED: cefTRIAXone 1,000 MG in SODIUM CHLORIDE 0.9% 100 ML IV STA (18:01)
[2021-08-25] MEDS ORDERED: methylPREDNISolone SOD SUC 125 MG/2 ML VIAL IV STA (18:02)
[2021-08-25] MEDS ORDERED: ALBUTEROL/IPRATROPIUM 3 ML NEB RESP TX STA (18:02)
[2021-08-25 18:20] LABS: Basophils # 0.1 10*3/uL (0.0-0.2); Basophils % 0.2 % (0.0-0.8); Eosinophils # 0.1 10*3/uL (0.0-0.87); Eosinophils % 0.6 % (0.00-10.9); Hematocrit 41.7 VOL% (42.0-52.0); Hemoglobin 12.5 GM/DL (14.0-18.0); Immature Granulocytes % 0.6 %; Immature Granulocytes Absolute 0.14 #; Lymphocytes # 1.3 10*3/uL (1.4-4.0); Lymphocytes % 6.2 % (21.2-54.2); Mean Corpuscular Volume 94.6 FL (87-102); Monocytes % 5.7 % (1.7-12.7); Neutrophils % 86.7 % (38.7-73.9); Platelet Count 285 T/CUMM (130-400); Red Blood Count 4.41 MC/CUMM (3.8-5.5); Red Cell Distribution Width 13.2 % (9.3-17.3); White Blood Count 21.6 T/CUMM (4-12)
[2021-08-25 18:25] LABS: Albumin 3.3 G/DL (3.4-5.0); Bilirubin,Total 0.5 MG/DL (0.20-1.00); Calcium 10.2 MG/DL (8.5-10.1); Osmolality,Calculated 277.2 MOS/KG (273-304); Potassium 4.1 MMOL/L (3.5-5.1); Total Protein 7.4 G/DL (6.4-8.2)
[2021-08-25 18:30] LABS: Band Neutrophils 7 % (0-10); Hypochromasia Slight; Lymphocytes 6 % (20-55); Platelet Estimate Normal; Polychromasia Slight; Segmented Neutrophils 83 % (50-85); Total Cells Counted 100
[2021-08-25] MEDS ORDERED: GLUCAGON 1 MG VIAL IM PRN (21:41)
[2021-08-25] MEDS ORDERED: ONDANSETRON 4 MG/2 ML VIAL IV PRN (21:42)
[2021-08-25] MEDS ORDERED: guaiFENesin/DM ER 600-30 MG TABLET PO PRN (21:42)
[2021-08-25] MEDS ORDERED: SIMETHICONE CHEW 125 MG TABLET PO PRN (21:42)
[2021-08-25] MEDS ORDERED: DEXTROSE 50% 25 GM/50 ML SYRINGE IV PRN (22:37)
[2021-08-25] MEDS: LEVOFLOXACIN INJ 750 MG/150 ML PREMIX IV SCH (23:49)
[2021-08-26 00:01] LABS: Bilirubin,Urine Negative (Negative); Blood, Urine Negative (Negative); Glucose,Urine (UA) >=500 mg/dL (Negative); Ketones,Urine 20 mg/dL (Negative); Nitrite,Urine Negative (Negative); Protein,Urine Negative; RBC,Urine 2 /HPF (0-4); Squamous Epithelial Cell,Urine Occasional /HPF (0-10); Urine Appearance CLEAR (Clear); Urine Color Yellow (Yellow); Urine Specific Gravity 1.021 (1.001-1.035); Urine Urobilinogen < 2.0 EU/DL (0.2-1.0)
[2021-08-26 00:01] LABS: INR 1.2; PT Patient Result 13.4 SECS (10.5-12.0); Partial Thromboplastin Time 37.8 SECS (23.8-32.1)
[2021-08-26] MEDS: PIPERACILLIN/TAZOBACTAM 3,375 MG in SODIUM CHLORIDE 0.9% 100 ML IV SCH ×3 (02:09→18:07)
[2021-08-26] MEDS: methylPREDNISolone SOD SUC 125 MG/2 ML VIAL IV SCH ×3 (02:11→21:05)
[2021-08-26] MEDS: ALBUTEROL/IPRATROPIUM 3 ML NEB RESP TX SCH ×4 (03:52→20:39)
[2021-08-26] MEDS ORDERED: POTASSIUM CHLORIDE RIDER 10 MEQ/100 ML PREMIX IV PRN (05:21)
[2021-08-26] MEDS ORDERED: POTASSIUM CHLORIDE 20 MEQ TABLET PO PRN (05:21)
[2021-08-26] MEDS ORDERED: MAGNESIUM SULF RIDER 2 GM/50 ML PREMIX IV PRN (05:21)
[2021-08-26] MEDS ORDERED: MAGNESIUM SULF RIDER 4 GM/100 ML PREMIX IV PRN (05:21)
[2021-08-26] MEDS ORDERED: NITROGLYCERIN SL 0.4 MG TABLET SL PRN (07:26)
[2021-08-26] MEDS ORDERED: GLUCAGON 1 MG VIAL IM PRN (07:27)
[2021-08-26] MEDS ORDERED: DEXTROSE 50% 25 GM/50 ML SYRINGE IV PRN (07:27)
[2021-08-26] MEDS: INSULIN REGULAR 100 UNIT/ML SUBCUT SCH ×4 (08:55→21:15)
[2021-08-26] MEDS: INSULIN GLARGINE 100 UNIT/ML SUBCUT SCH (08:57)
[2021-08-26] MEDS ORDERED: INSULIN DETEMIR 100 UNIT/ML SUBCUT SCH (09:00)
[2021-08-26] MEDS: DOCUSATE SODIUM 100 MG CAPSULE PO SCH ×2 (09:00→21:03)
[2021-08-26] MEDS: SOTALOL 80 MG TABLET PO SCH ×2 (09:00→21:03)
[2021-08-26] MEDS: MONTELUKAST 10 MG TABLET PO SCH (09:01)
[2021-08-26] MEDS: PANTOPRAZOLE 40 MG TABLET PO SCH (09:01)
[2021-08-26] MEDS: MAGNESIUM CHLORIDE 64 MG TABLET PO SCH (09:01)
[2021-08-26] MEDS: CHOLECALCIFEROL 5,000 UNIT TABLET PO SCH (09:01)
[2021-08-26] MEDS: FUROSEMIDE 40 MG/4 ML VIAL IV SCH (09:07)
[2021-08-26] MEDS: DABIGATRAN 150 MG CAPSULE PO SCH ×2 (09:50→21:04)
[2021-08-26] MEDS: VERAPAMIL SR 180 MG TABLET PO SCH (09:50)
[2021-08-26] MEDS: FLUTICASONE/SALMETEROL 500-50 DISKUS 14 DOSE INH SCH ×2 (09:55→21:04)
[2021-08-26] MEDS: LOSARTAN 25 MG TABLET PO SCH (21:03)
[2021-08-26] MEDS: ATORVASTATIN 40 MG TABLET PO SCH (21:03)
[2021-08-26] MEDS: LEVOFLOXACIN INJ 750 MG/150 ML PREMIX IV SCH (23:15)
[2021-08-27] MEDS: ALBUTEROL/IPRATROPIUM 3 ML NEB RESP TX SCH ×4 (01:01→19:50)
[2021-08-27] MEDS: methylPREDNISolone SOD SUC 125 MG/2 ML VIAL IV SCH ×3 (03:04→21:40)
[2021-08-27] MEDS: PIPERACILLIN/TAZOBACTAM 3,375 MG in SODIUM CHLORIDE 0.9% 100 ML IV SCH ×3 (03:10→18:23)
[2021-08-27 05:41] LABS: Osmolality,Calculated 287.3 MOS/KG (273-304); Potassium 4.6 MMOL/L (3.5-5.1)
[2021-08-27 05:48] LABS: Basophils % 0.1 % (0.0-0.8); Immature Granulocytes % 1.1 %; Immature Granulocytes Absolute 0.25 #; Lymphocytes # 0.9 10*3/uL (1.4-4.0); Lymphocytes % 4.2 % (21.2-54.2); Mean Corpuscular HGB Conc 29.7 GM/DL (32-36); Mean Corpuscular Volume 94.9 FL (87-102); Mean Platelet Volume 10.8 FL (9.6-12.0); Monocytes % 4.1 % (1.7-12.7); Neutrophils % 90.5 % (38.7-73.9); Platelet Count 263 T/CUMM (130-400); Red Cell Distribution Width 13.5 % (9.3-17.3)
[2021-08-27 05:59] LABS: Band Neutrophils 1 % (0-10); Hypochromasia Slight; Lymphocytes 3 % (20-55); Microcytosis Slight; Platelet Estimate Adequate; Segmented Neutrophils 92 % (50-85); Total Cells Counted 100
[2021-08-27] MEDS: PANTOPRAZOLE 40 MG TABLET PO SCH (10:13)
[2021-08-27] MEDS: MONTELUKAST 10 MG TABLET PO SCH (10:13)
[2021-08-27] MEDS: VERAPAMIL SR 180 MG TABLET PO SCH (10:13)
[2021-08-27] MEDS: DOCUSATE SODIUM 100 MG CAPSULE PO SCH ×2 (10:13→21:41)
[2021-08-27] MEDS: DABIGATRAN 150 MG CAPSULE PO SCH ×2 (10:13→21:41)
[2021-08-27] MEDS: MAGNESIUM CHLORIDE 64 MG TABLET PO SCH (10:13)
[2021-08-27] MEDS: CHOLECALCIFEROL 5,000 UNIT TABLET PO SCH (10:13)
[2021-08-27] MEDS: FERROUS SULFATE 325 MG TABLET PO SCH (10:13)
[2021-08-27] MEDS: SOTALOL 80 MG TABLET PO SCH ×2 (10:13→21:41)
[2021-08-27] MEDS: FUROSEMIDE 40 MG/4 ML VIAL IV SCH (10:14)
[2021-08-27] MEDS: INSULIN GLARGINE 100 UNIT/ML SUBCUT SCH ×2 (10:15→21:41)
[2021-08-27] MEDS: FLUTICASONE/SALMETEROL 500-50 DISKUS 14 DOSE INH SCH ×2 (10:15→21:41)
[2021-08-27] MEDS: INSULIN REGULAR 100 UNIT/ML SUBCUT SCH ×4 (10:15→21:41)
[2021-08-27] MEDS: LOSARTAN 25 MG TABLET PO SCH (21:41)
[2021-08-27] MEDS: ATORVASTATIN 40 MG TABLET PO SCH (21:41)
[2021-08-27] MEDS: ACETAMINOPHEN 325 MG TABLET PO PRN (21:45)
[2021-08-28] MEDS: LEVOFLOXACIN INJ 750 MG/150 ML PREMIX IV SCH (00:03)
[2021-08-28] MEDS: ALBUTEROL/IPRATROPIUM 3 ML NEB RESP TX SCH ×4 (01:04→19:10)
[2021-08-28] MEDS: PIPERACILLIN/TAZOBACTAM 3,375 MG in SODIUM CHLORIDE 0.9% 100 ML IV SCH ×3 (02:10→17:41)
[2021-08-28] MEDS: methylPREDNISolone SOD SUC 125 MG/2 ML VIAL IV SCH ×2 (05:11→13:13)
[2021-08-28 07:27] LABS: Osmolality,Calculated 281.1 MOS/KG (273-304); Potassium 3.7 MMOL/L (3.5-5.1)
[2021-08-28] MEDS: INSULIN REGULAR 100 UNIT/ML SUBCUT SCH ×4 (08:26→23:15)
[2021-08-28 08:31] LABS: Basophils % 0.1 % (0.0-0.8); Hematocrit 38.9 VOL% (42.0-52.0); Immature Granulocytes % 1.5 %; Immature Granulocytes Absolute 0.29 #; Lymphocytes # 1.1 10*3/uL (1.4-4.0); Lymphocytes % 5.8 % (21.2-54.2); Mean Corpuscular HGB Conc 29.8 GM/DL (32-36); Mean Platelet Volume 10.7 FL (9.6-12.0); Neutrophils % 88.6 % (38.7-73.9); Platelet Count 274 T/CUMM (130-400); Red Blood Count 4.14 MC/CUMM (3.8-5.5); Red Cell Distribution Width 13.3 % (9.3-17.3); White Blood Count 19.3 T/CUMM (4-12)
[2021-08-28 08:32] LABS: Hemoglobin 11.6 GM/DL (14.0-18.0)
[2021-08-28] MEDS: DABIGATRAN 150 MG CAPSULE PO SCH ×2 (09:57→23:16)
[2021-08-28] MEDS: SOTALOL 80 MG TABLET PO SCH ×2 (09:57→23:16)
[2021-08-28] MEDS: CHOLECALCIFEROL 5,000 UNIT TABLET PO SCH (09:58)
[2021-08-28] MEDS: DOCUSATE SODIUM 100 MG CAPSULE PO SCH ×2 (09:58→23:17)
[2021-08-28] MEDS: MAGNESIUM CHLORIDE 64 MG TABLET PO SCH (09:58)
[2021-08-28] MEDS: PANTOPRAZOLE 40 MG TABLET PO SCH (09:58)
[2021-08-28] MEDS: FUROSEMIDE 40 MG/4 ML VIAL IV SCH (09:58)
[2021-08-28] MEDS: MONTELUKAST 10 MG TABLET PO SCH (09:58)
[2021-08-28] MEDS: VERAPAMIL SR 180 MG TABLET PO SCH (09:58)
[2021-08-28] MEDS: FLUTICASONE/SALMETEROL 500-50 DISKUS 14 DOSE INH SCH ×2 (09:59→23:17)
[2021-08-28] MEDS: INSULIN GLARGINE 100 UNIT/ML SUBCUT SCH ×2 (09:59→23:15)
[2021-08-28] MEDS: LEVOFLOXACIN 750 MG TABLET PO SCH (15:31)
[2021-08-28] MEDS: methylPREDNISolone SOD SUC 40 MG/1 ML VIAL IV SCH (23:15)
[2021-08-28] MEDS: LOSARTAN 25 MG TABLET PO SCH (23:17)
[2021-08-28] MEDS: ATORVASTATIN 40 MG TABLET PO SCH (23:17)
[2021-08-29] MEDS: ALBUTEROL/IPRATROPIUM 3 ML NEB RESP TX SCH ×4 (00:11→22:12)
[2021-08-29] MEDS: PIPERACILLIN/TAZOBACTAM 3,375 MG in SODIUM CHLORIDE 0.9% 100 ML IV SCH ×2 (03:37→10:30)
[2021-08-29 05:38] LABS: Calcium 9.9 MG/DL (8.5-10.1); Osmolality,Calculated 275.5 MOS/KG (273-304); Potassium 4.2 MMOL/L (3.5-5.1)
[2021-08-29] MEDS: methylPREDNISolone SOD SUC 40 MG/1 ML VIAL IV SCH ×3 (05:45→22:02)
[2021-08-29 05:56] LABS: Basophils % 0.2 % (0.0-0.8); Hematocrit 45.8 VOL% (42.0-52.0); Immature Granulocytes % 0.9 %; Immature Granulocytes Absolute 0.17 #; Lymphocytes # 1.2 10*3/uL (1.4-4.0); Lymphocytes % 6.9 % (21.2-54.2); Mean Corpuscular HGB Conc 28.8 GM/DL (32-36); Mean Corpuscular Volume 95.2 FL (87-102); Mean Platelet Volume 10.4 FL (9.6-12.0); NRBC # 0.02 10*3/uL; Platelet Count 308 T/CUMM (130-400); Red Blood Count 4.81 MC/CUMM (3.8-5.5); Red Cell Distribution Width 13.1 % (9.3-17.3); White Blood Count 17.9 T/CUMM (4-12)
[2021-08-29 05:57] LABS: Hemoglobin 13.2 GM/DL (14.0-18.0)
[2021-08-29] MEDS: FLUTICASONE/SALMETEROL 500-50 DISKUS 14 DOSE INH SCH ×2 (10:22→22:03)
[2021-08-29] MEDS: MAGNESIUM CHLORIDE 64 MG TABLET PO SCH (10:26)
[2021-08-29] MEDS: FERROUS SULFATE 325 MG TABLET PO SCH (10:26)
[2021-08-29] MEDS: DOCUSATE SODIUM 100 MG CAPSULE PO SCH ×2 (10:26→22:02)
[2021-08-29] MEDS: SOTALOL 80 MG TABLET PO SCH ×2 (10:26→22:00)
[2021-08-29] MEDS: VERAPAMIL SR 180 MG TABLET PO SCH (10:26)
[2021-08-29] MEDS: LEVOFLOXACIN 750 MG TABLET PO SCH (10:27)
[2021-08-29] MEDS: PANTOPRAZOLE 40 MG TABLET PO SCH (10:27)
[2021-08-29] MEDS: FUROSEMIDE 40 MG/4 ML VIAL IV SCH (10:27)
[2021-08-29] MEDS: DABIGATRAN 150 MG CAPSULE PO SCH ×2 (10:27→22:01)
[2021-08-29] MEDS: CHOLECALCIFEROL 5,000 UNIT TABLET PO SCH (10:27)
[2021-08-29] MEDS: MONTELUKAST 10 MG TABLET PO SCH (10:27)
[2021-08-29] MEDS: INSULIN GLARGINE 100 UNIT/ML SUBCUT SCH ×2 (10:29→22:01)
[2021-08-29] MEDS: INSULIN REGULAR 100 UNIT/ML SUBCUT SCH ×4 (10:30→22:02)
[2021-08-29] MEDS ORDERED: cefTRIAXone 1,000 MG VIAL IM SCH (15:30)
[2021-08-29] MEDS: cefTRIAXone 1,000 MG in SODIUM CHLORIDE 0.9% 100 ML IV SCH (15:40)
[2021-08-29] MEDS: ACETAMINOPHEN 325 MG TABLET PO PRN (22:00)
[2021-08-29] MEDS: ATORVASTATIN 40 MG TABLET PO SCH (22:01)
[2021-08-29] MEDS: LOSARTAN 25 MG TABLET PO SCH (22:01)
[2021-08-30] MEDS: ALBUTEROL/IPRATROPIUM 3 ML NEB RESP TX SCH ×5 (02:30→20:15)
[2021-08-30] MEDS: methylPREDNISolone SOD SUC 40 MG/1 ML VIAL IV SCH ×3 (05:08→20:46)
[2021-08-30] MEDS: cefTRIAXone 1,000 MG in SODIUM CHLORIDE 0.9% 100 ML IV SCH ×2 (05:09→16:29)
[2021-08-30 05:36] LABS: Basophils % 0.2 % (0.0-0.8); Hematocrit 43.5 VOL% (42.0-52.0); Hemoglobin 13.2 GM/DL (14.0-18.0); Immature Granulocytes % 1.6 %; Immature Granulocytes Absolute 0.23 #; Lymphocytes # 1.9 10*3/uL (1.4-4.0); Lymphocytes % 12.8 % (21.2-54.2); Mean Corpuscular HGB Conc 30.3 GM/DL (32-36); Mean Platelet Volume 10.9 FL (9.6-12.0); Monocytes % 7.8 % (1.7-12.7); Neutrophils % 77.6 % (38.7-73.9); Platelet Count 284 T/CUMM (130-400); Red Blood Count 4.73 MC/CUMM (3.8-5.5); White Blood Count 14.5 T/CUMM (4-12)
[2021-08-30 06:07] LABS: Calcium 9.2 MG/DL (8.5-10.1); Osmolality,Calculated 290.4 MOS/KG (273-304); Potassium 4.1 MMOL/L (3.5-5.1)
[2021-08-30] MEDS: INSULIN GLARGINE 100 UNIT/ML SUBCUT SCH ×2 (10:03→20:44)
[2021-08-30] MEDS: FUROSEMIDE 40 MG/4 ML VIAL IV SCH ×2 (10:03→16:29)
[2021-08-30] MEDS: DOCUSATE SODIUM 100 MG CAPSULE PO SCH ×2 (10:04→20:47)
[2021-08-30] MEDS: DABIGATRAN 150 MG CAPSULE PO SCH ×2 (10:04→20:44)
[2021-08-30] MEDS: PANTOPRAZOLE 40 MG TABLET PO SCH (10:04)
[2021-08-30] MEDS: VERAPAMIL SR 180 MG TABLET PO SCH (10:04)
[2021-08-30] MEDS: SOTALOL 80 MG TABLET PO SCH ×2 (10:04→20:44)
[2021-08-30] MEDS: MAGNESIUM CHLORIDE 64 MG TABLET PO SCH (10:04)
[2021-08-30] MEDS: CHOLECALCIFEROL 5,000 UNIT TABLET PO SCH (10:05)
[2021-08-30] MEDS: MONTELUKAST 10 MG TABLET PO SCH (10:08)
[2021-08-30] MEDS: INSULIN REGULAR 100 UNIT/ML SUBCUT SCH ×4 (10:09→20:43)
[2021-08-30] MEDS: FLUTICASONE/SALMETEROL 500-50 DISKUS 14 DOSE INH SCH ×2 (10:12→20:47)
[2021-08-30] MEDS: ACETAMINOPHEN 325 MG TABLET PO PRN (20:44)
[2021-08-30] MEDS: ATORVASTATIN 40 MG TABLET PO SCH (20:44)
[2021-08-30] MEDS: LOSARTAN 25 MG TABLET PO SCH (20:45)
[2021-08-31] MEDS: ALBUTEROL/IPRATROPIUM 3 ML NEB RESP TX SCH ×7 (00:01→23:47)
[2021-08-31] MEDS: cefTRIAXone 1,000 MG in SODIUM CHLORIDE 0.9% 100 ML IV SCH ×2 (13:13→16:43)
[2021-08-31] MEDS: INSULIN REGULAR 100 UNIT/ML SUBCUT SCH ×4 (13:13→21:06)
[2021-08-31] MEDS: methylPREDNISolone SOD SUC 40 MG/1 ML VIAL IV SCH ×2 (13:13→14:07)
[2021-08-31] MEDS: FUROSEMIDE 40 MG/4 ML VIAL IV SCH ×2 (13:14→16:44)
[2021-08-31] MEDS: FLUTICASONE/SALMETEROL 500-50 DISKUS 14 DOSE INH SCH ×2 (13:14→21:07)
[2021-08-31] MEDS: SOTALOL 80 MG TABLET PO SCH ×2 (13:14→21:05)
[2021-08-31] MEDS: DOCUSATE SODIUM 100 MG CAPSULE PO SCH ×2 (13:14→21:07)
[2021-08-31] MEDS: VERAPAMIL SR 180 MG TABLET PO SCH (13:14)
[2021-08-31] MEDS: PANTOPRAZOLE 40 MG TABLET PO SCH (13:15)
[2021-08-31] MEDS: MONTELUKAST 10 MG TABLET PO SCH (13:15)
[2021-08-31] MEDS: INSULIN GLARGINE 100 UNIT/ML SUBCUT SCH ×2 (13:15→21:06)
[2021-08-31] MEDS: MAGNESIUM CHLORIDE 64 MG TABLET PO SCH (13:15)
[2021-08-31] MEDS: CHOLECALCIFEROL 5,000 UNIT TABLET PO SCH (13:15)
[2021-08-31] MEDS: DABIGATRAN 150 MG CAPSULE PO SCH ×2 (13:15→21:05)
[2021-08-31 13:30] LABS: Basophils % 0.2 % (0.0-0.8); Hematocrit 46.2 VOL% (42.0-52.0); Hemoglobin 13.8 GM/DL (14.0-18.0); Lymphocytes # 1.9 10*3/uL (1.4-4.0); Lymphocytes % 12.2 % (21.2-54.2); Mean Corpuscular HGB Conc 29.9 GM/DL (32-36); Mean Platelet Volume 10.3 FL (9.6-12.0); Monocytes % 7.3 % (1.7-12.7); Platelet Count 312 T/CUMM (130-400); Red Blood Count 5.02 MC/CUMM (3.8-5.5); Red Cell Distribution Width 13.2 % (9.3-17.3); White Blood Count 15.4 T/CUMM (4-12)
[2021-08-31 13:51] LABS: Calcium 9.2 MG/DL (8.5-10.1); Osmolality,Calculated 288.1 MOS/KG (273-304)
[2021-08-31] MEDS: LOSARTAN 25 MG TABLET PO SCH (21:05)
[2021-08-31] MEDS: ACETAMINOPHEN 325 MG TABLET PO PRN (21:06)
[2021-08-31] MEDS: ATORVASTATIN 40 MG TABLET PO SCH (21:06)
[2021-09-01] MEDS: ALBUTEROL/IPRATROPIUM 3 ML NEB RESP TX SCH ×6 (03:45→23:28)
[2021-09-01] MEDS: cefTRIAXone 1,000 MG in SODIUM CHLORIDE 0.9% 100 ML IV SCH ×2 (05:02→15:00)
[2021-09-01] MEDS: methylPREDNISolone SOD SUC 40 MG/1 ML VIAL IV SCH ×2 (05:03→14:58)
[2021-09-01 05:59] LABS: Basophils # 0.1 10*3/uL (0.0-0.2); Basophils % 0.3 % (0.0-0.8); Eosinophils # 0.1 10*3/uL (0.0-0.87); Eosinophils % 0.5 % (0.00-10.9); Hematocrit 48.2 VOL% (42.0-52.0); Immature Granulocytes % 1.8 %; Lymphocytes % 23.1 % (21.2-54.2); Mean Corpuscular HGB Conc 30.5 GM/DL (32-36); Mean Corpuscular Volume 92.2 FL (87-102); Mean Platelet Volume 11.8 FL (9.6-12.0); Neutrophils % 65.3 % (38.7-73.9); Platelet Count 189 T/CUMM (130-400); Red Blood Count 5.23 MC/CUMM (3.8-5.5); Red Cell Distribution Width 13.5 % (9.3-17.3); White Blood Count 21.8 T/CUMM (4-12)
[2021-09-01 06:00] LABS: Hemoglobin 14.7 GM/DL (14.0-18.0)
[2021-09-01 06:37] LABS: Calcium 9.7 MG/DL (8.5-10.1); Osmolality,Calculated 273.8 MOS/KG (273-304); Potassium 3.8 MMOL/L (3.5-5.1)
[2021-09-01 06:49] LABS: Band Neutrophils 1 % (0-10); Eosinophils 1 % (0-10); Hypochromasia 1+; Lymphocytes 25 % (20-55); Microcytosis 1+; Segmented Neutrophils 65 % (50-85); Total Cells Counted 100
[2021-09-01] MEDS: INSULIN REGULAR 100 UNIT/ML SUBCUT SCH ×4 (08:29→22:21)
[2021-09-01] MEDS: INSULIN GLARGINE 100 UNIT/ML SUBCUT SCH ×2 (10:15→22:21)
[2021-09-01] MEDS: FUROSEMIDE 40 MG/4 ML VIAL IV SCH ×2 (10:16→15:01)
[2021-09-01] MEDS: VERAPAMIL SR 180 MG TABLET PO SCH (10:17)
[2021-09-01] MEDS: FERROUS SULFATE 325 MG TABLET PO SCH (10:17)
[2021-09-01] MEDS: MONTELUKAST 10 MG TABLET PO SCH (10:17)
[2021-09-01] MEDS: SOTALOL 80 MG TABLET PO SCH ×2 (10:17→22:19)
[2021-09-01] MEDS: CHOLECALCIFEROL 5,000 UNIT TABLET PO SCH (10:17)
[2021-09-01] MEDS: MAGNESIUM CHLORIDE 64 MG TABLET PO SCH (10:17)
[2021-09-01] MEDS: DABIGATRAN 150 MG CAPSULE PO SCH ×2 (10:18→22:19)
[2021-09-01] MEDS: FLUTICASONE/SALMETEROL 500-50 DISKUS 14 DOSE INH SCH ×2 (10:18→22:27)
[2021-09-01] MEDS: DOCUSATE SODIUM 100 MG CAPSULE PO SCH ×2 (10:18→22:20)
[2021-09-01] MEDS: PANTOPRAZOLE 40 MG TABLET PO SCH (10:18)
[2021-09-01] MEDS ORDERED: LOPERAMIDE 2 MG CAPSULE PO PRN (13:45)
[2021-09-01] MEDS: ATORVASTATIN 40 MG TABLET PO SCH (22:20)
[2021-09-01] MEDS: LOSARTAN 25 MG TABLET PO SCH (22:20)
[2021-09-02] MEDS: methylPREDNISolone SOD SUC 40 MG/1 ML VIAL IV SCH ×2 (02:00→13:35)
[2021-09-02] MEDS: ALBUTEROL/IPRATROPIUM 3 ML NEB RESP TX SCH ×4 (03:45→16:10)
[2021-09-02] MEDS: cefTRIAXone 1,000 MG in SODIUM CHLORIDE 0.9% 100 ML IV SCH ×2 (05:24→15:48)
[2021-09-02 07:23] LABS: Basophils % 0.2 % (0.0-0.8); Hematocrit 45.4 VOL% (42.0-52.0); Immature Granulocytes % 2.7 %; Immature Granulocytes Absolute 0.49 #; Lymphocytes # 1.7 10*3/uL (1.4-4.0); Lymphocytes % 9.3 % (21.2-54.2); Mean Corpuscular HGB Conc 29.7 GM/DL (32-36); Mean Corpuscular Volume 94.2 FL (87-102); Mean Platelet Volume 10.3 FL (9.6-12.0); Monocytes % 6.9 % (1.7-12.7); Neutrophils % 80.9 % (38.7-73.9); Platelet Count 312 T/CUMM (130-400); Red Blood Count 4.82 MC/CUMM (3.8-5.5); Red Cell Distribution Width 13.8 % (9.3-17.3); White Blood Count 18.1 T/CUMM (4-12)
[2021-09-02 07:24] LABS: Hemoglobin 13.5 GM/DL (14.0-18.0)
[2021-09-02 07:26] LABS: Calcium 9.5 MG/DL (8.5-10.1); Osmolality,Calculated 282.1 MOS/KG (273-304); Potassium 4.3 MMOL/L (3.5-5.1)
[2021-09-02] MEDS: INSULIN REGULAR 100 UNIT/ML SUBCUT SCH ×3 (07:47→16:06)
[2021-09-02] MEDS: DABIGATRAN 150 MG CAPSULE PO SCH (09:32)
[2021-09-02] MEDS: INSULIN GLARGINE 100 UNIT/ML SUBCUT SCH (09:32)
[2021-09-02] MEDS: MONTELUKAST 10 MG TABLET PO SCH (09:33)
[2021-09-02] MEDS: CHOLECALCIFEROL 5,000 UNIT TABLET PO SCH (09:33)
[2021-09-02] MEDS: SOTALOL 80 MG TABLET PO SCH (09:33)
[2021-09-02] MEDS: VERAPAMIL SR 180 MG TABLET PO SCH (09:33)
[2021-09-02] MEDS: PANTOPRAZOLE 40 MG TABLET PO SCH (09:33)
[2021-09-02] MEDS: MAGNESIUM CHLORIDE 64 MG TABLET PO SCH (09:33)
[2021-09-02] MEDS: FUROSEMIDE 40 MG/4 ML VIAL IV SCH ×2 (09:34→15:48)
[2021-09-02] MEDS: FLUTICASONE/SALMETEROL 500-50 DISKUS 14 DOSE INH SCH (09:34)
[2021-09-02] MEDS: DOCUSATE SODIUM 100 MG CAPSULE PO SCH (09:35)
[2021-09-02 15:55] VITALS: BP 144/69
== END 2021-09-02 16:46 | disposition swing bed (61) | DRG 178 ==
LOC: N.ED 17:09 → SUATTDRO 21:41 → N.EDINP 21:41 → N.5E 08-26 16:20
PROVIDERS: ADMIT Internal Medicine; ATTEND Internal Medicine

== ENCOUNTER 2022-05-08 06:09 | Inpatient (IN) ==
[2022-05-08] MEDS ORDERED: methylPREDNISolone SOD SUC 125 MG/2 ML VIAL IV STA (07:04)
[2022-05-08 07:13] LABS: Basophils # 0.1 10*3/uL (0.0-0.2); Basophils % 0.5 % (0.0-0.8); Eosinophils # 0.4 10*3/uL (0.0-0.87); Eosinophils % 2.4 % (0.00-10.9); Hematocrit 37.6 VOL% (42.0-52.0); Hemoglobin 10.9 GM/DL (14.0-18.0); Immature Granulocytes % 0.5 %; Immature Granulocytes Absolute 0.08 #; Lymphocytes # 3.8 10*3/uL (1.4-4.0); Lymphocytes % 25.8 % (21.2-54.2); Mean Corpuscular Volume 90.6 FL (87-102); Mean Platelet Volume 11.1 FL (9.6-12.0); Monocytes # 1.2 10*3/uL (0.11-0.8); Monocytes % 8.3 % (1.7-12.7); Neutrophils % 62.5 % (38.7-73.9); Platelet Count 323 T/CUMM (130-400); Red Blood Count 4.15 MC/CUMM (3.8-5.5); Red Cell Distribution Width 15.3 % (9.3-17.3); White Blood Count 14.8 T/CUMM (4-12)
[2022-05-08] MEDS ORDERED: ALBUTEROL NEB SOLN 5 MG/ML 20 ML/BOTTLE CONT NEB SCH (07:30)
[2022-05-08 07:46] LABS: Alanine Aminotransferase 15 U/L (16-61); Albumin 3.5 G/DL (3.4-5.0); Alkaline Phosphatase 59 U/L (45-117); Aspartate Amino Transferase 9 U/L (0-37); Bilirubin,Total < 0.39 MG/DL (0.20-1.00); Blood Urea Nitrogen 18 MG/DL (7-18); Calcium 10.3 MG/DL (8.5-10.1); Carbon Dioxide 33 MMOL/L (21-32); Chloride 102 MMOL/L (98-107); Glucose 167 MG/DL (74-106); Osmolality,Calculated 284.4 MOS/KG (273-304); Potassium 3.6 MMOL/L (3.5-5.1); Sodium 140 MMOL/L (136-145); Total Protein 7.5 G/DL (6.4-8.2)
[2022-05-08] MEDS ORDERED: GLUCAGON 1 MG VIAL IM PRN (10:32)
[2022-05-08] MEDS ORDERED: ONDANSETRON 4 MG/2 ML VIAL IV PRN (10:32)
[2022-05-08] MEDS ORDERED: DOCUSATE SODIUM 100 MG CAPSULE PO PRN (10:32)
[2022-05-08] MEDS ORDERED: DEXTROSE 10% 250 ML BAG IV PRN (10:40)
[2022-05-08] MEDS: MAGNESIUM SULF INJ 3 GM in SODIUM CHLORIDE 0.9% 100 ML IV ONE ×2 (11:30→12:58)
[2022-05-08] MEDS: ALBUTEROL/IPRATROPIUM 3 ML NEB RESP TX SCH ×2 (13:22→20:02)
[2022-05-08] MEDS: ENOXAPARIN 40 MG/0.4 ML SYRINGE SUBCUT SCH (14:37)
[2022-05-08] MEDS: methylPREDNISolone SOD SUC 40 MG/1 ML VIAL IV SCH ×2 (14:37→22:30)
[2022-05-08] MEDS: DOXYCYCLINE HYCLATE 100 MG CAPSULE PO SCH ×2 (14:37→20:40)
[2022-05-08] MEDS ORDERED: METHOCARBAMOL 500 MG TABLET PO PRN (15:09)
[2022-05-08] MEDS ORDERED: NITROGLYCERIN SL 0.4 MG TABLET SL PRN (15:09)
[2022-05-08] MEDS: PANTOPRAZOLE 40 MG TABLET PO SCH (15:55)
[2022-05-08] MEDS: DIGOXIN 0.25 MG TABLET PO SCH (15:55)
[2022-05-08] MEDS: INSULIN REGULAR 100 UNIT/ML SUBCUT SCH ×2 (15:56→20:25)
[2022-05-08] MEDS: ACETAMINOPHEN 325 MG TABLET PO PRN ×2 (16:16→21:05)
[2022-05-08] MEDS: METOPROLOL SUCCINATE XL 100 MG TABLET PO SCH (20:25)
[2022-05-08] MEDS: FLUTICASONE/SALMETEROL 500-50 DISKUS 14 DOSE INH SCH (20:25)
[2022-05-08] MEDS: metFORMIN 500 MG TABLET PO SCH (20:25)
[2022-05-08] MEDS: INSULIN GLARGINE 100 UNIT/ML SUBCUT SCH (20:40)
[2022-05-08] MEDS ORDERED: NON-FORMULARY MEDICATION (Metformin 1,000 mg Tablet) PO SCH (21:00)
[2022-05-09] MEDS: ALBUTEROL/IPRATROPIUM 3 ML NEB RESP TX SCH ×4 (00:10→20:00)
[2022-05-09 05:41] LABS: Basophils % 0.1 % (0.0-0.8); Hematocrit 35.7 VOL% (42.0-52.0); Hemoglobin 10.6 GM/DL (14.0-18.0); Immature Granulocytes % 0.6 %; Immature Granulocytes Absolute 0.08 #; Lymphocytes # 1.2 10*3/uL (1.4-4.0); Mean Corpuscular HGB Conc 29.7 GM/DL (32-36); Mean Corpuscular Volume 88.8 FL (87-102); Monocytes # 0.8 10*3/uL (0.11-0.8); Monocytes % 5.6 % (1.7-12.7); Neutrophils % 84.7 % (38.7-73.9); Platelet Count 336 T/CUMM (130-400); Red Blood Count 4.02 MC/CUMM (3.8-5.5); Red Cell Distribution Width 15.3 % (9.3-17.3); White Blood Count 13.6 T/CUMM (4-12)
[2022-05-09 06:05] LABS: Calcium 9.3 MG/DL (8.5-10.1); Osmolality,Calculated 285.1 MOS/KG (273-304); Potassium 4.2 MMOL/L (3.5-5.1)
[2022-05-09] MEDS: MAGNESIUM OXIDE 400 MG TABLET PO SCH ×2 (07:59→08:05)
[2022-05-09] MEDS: MONTELUKAST 10 MG TABLET PO SCH ×2 (07:59→08:05)
[2022-05-09] MEDS: PANTOPRAZOLE 40 MG TABLET PO SCH ×2 (07:59→08:05)
[2022-05-09] MEDS: DOXYCYCLINE HYCLATE 100 MG CAPSULE PO SCH ×2 (08:00→20:30)
[2022-05-09] MEDS: FLUTICASONE/SALMETEROL 500-50 DISKUS 14 DOSE INH SCH ×2 (08:00→20:30)
[2022-05-09] MEDS: METOPROLOL SUCCINATE XL 100 MG TABLET PO SCH ×3 (08:00→20:30)
[2022-05-09] MEDS: metFORMIN 500 MG TABLET PO SCH (08:00)
[2022-05-09] MEDS: methylPREDNISolone SOD SUC 40 MG/1 ML VIAL IV SCH ×3 (08:04→23:30)
[2022-05-09] MEDS: INSULIN GLARGINE 100 UNIT/ML SUBCUT SCH ×2 (08:27→21:05)
[2022-05-09] MEDS: INSULIN REGULAR 100 UNIT/ML SUBCUT SCH ×4 (08:27→21:05)
[2022-05-09] MEDS: DIGOXIN 0.25 MG TABLET PO SCH (13:25)
[2022-05-09] MEDS: ENOXAPARIN 40 MG/0.4 ML SYRINGE SUBCUT SCH (13:26)
[2022-05-10] MEDS: INSULIN REGULAR 100 UNIT/ML SUBCUT SCH ×4 (07:33→21:46)
[2022-05-10] MEDS: ALBUTEROL/IPRATROPIUM 3 ML NEB RESP TX SCH ×4 (07:35→19:40)
[2022-05-10] MEDS: INSULIN GLARGINE 100 UNIT/ML SUBCUT SCH ×2 (08:11→21:46)
[2022-05-10] MEDS: MONTELUKAST 10 MG TABLET PO SCH (08:13)
[2022-05-10] MEDS: DOXYCYCLINE HYCLATE 100 MG CAPSULE PO SCH ×2 (08:13→21:45)
[2022-05-10] MEDS: PANTOPRAZOLE 40 MG TABLET PO SCH (08:13)
[2022-05-10] MEDS: methylPREDNISolone SOD SUC 40 MG/1 ML VIAL IV SCH ×2 (08:13→16:41)
[2022-05-10] MEDS: MAGNESIUM OXIDE 400 MG TABLET PO SCH (08:13)
[2022-05-10] MEDS: METOPROLOL SUCCINATE XL 100 MG TABLET PO SCH ×2 (08:14→21:47)
[2022-05-10] MEDS: FLUTICASONE/SALMETEROL 500-50 DISKUS 14 DOSE INH SCH ×2 (08:14→21:02)
[2022-05-10 10:59] LABS: Basophils % 0.1 % (0.0-0.8); Hematocrit 39.1 VOL% (42.0-52.0); Hemoglobin 11.4 GM/DL (14.0-18.0); Immature Granulocytes % 0.5 %; Immature Granulocytes Absolute 0.09 #; Lymphocytes # 1.5 10*3/uL (1.4-4.0); Lymphocytes % 9.3 % (21.2-54.2); Mean Corpuscular HGB Conc 29.2 GM/DL (32-36); Mean Corpuscular Volume 90.5 FL (87-102); Mean Platelet Volume 11.2 FL (9.6-12.0); Monocytes # 0.8 10*3/uL (0.11-0.8); Monocytes % 4.7 % (1.7-12.7); Neutrophils % 85.4 % (38.7-73.9); Platelet Count 350 T/CUMM (130-400); Red Blood Count 4.32 MC/CUMM (3.8-5.5); Red Cell Distribution Width 15.4 % (9.3-17.3); White Blood Count 16.5 T/CUMM (4-12)
[2022-05-10 11:01] LABS: Calcium 9.6 MG/DL (8.5-10.1); Osmolality,Calculated 287.3 MOS/KG (273-304); Potassium 4.3 MMOL/L (3.5-5.1)
[2022-05-10] MEDS: DIGOXIN 0.25 MG TABLET PO SCH (13:58)
[2022-05-10] MEDS: ACETAMINOPHEN 325 MG TABLET PO PRN (21:43)
[2022-05-11] MEDS: methylPREDNISolone SOD SUC 40 MG/1 ML VIAL IV SCH ×3 (01:00→17:17)
[2022-05-11] MEDS: ALBUTEROL/IPRATROPIUM 3 ML NEB RESP TX SCH ×4 (01:41→20:19)
[2022-05-11] MEDS: FLUTICASONE/SALMETEROL 500-50 DISKUS 14 DOSE INH SCH ×2 (08:20→21:04)
[2022-05-11] MEDS: INSULIN REGULAR 100 UNIT/ML SUBCUT SCH ×4 (08:31→21:13)
[2022-05-11] MEDS ORDERED: FERROUS SULFATE 325 MG TABLET PO SCH (09:00)
[2022-05-11] MEDS: INSULIN GLARGINE 100 UNIT/ML SUBCUT SCH ×2 (12:20→21:14)
[2022-05-11] MEDS: DOXYCYCLINE HYCLATE 100 MG CAPSULE PO SCH ×2 (12:25→21:04)
[2022-05-11] MEDS: METOPROLOL SUCCINATE XL 100 MG TABLET PO SCH ×2 (12:26→21:04)
[2022-05-11] MEDS: DIGOXIN 0.25 MG TABLET PO SCH (12:27)
[2022-05-11] MEDS: PANTOPRAZOLE 40 MG TABLET PO SCH (12:27)
[2022-05-11] MEDS: MONTELUKAST 10 MG TABLET PO SCH (12:27)
[2022-05-11] MEDS: MAGNESIUM OXIDE 400 MG TABLET PO SCH (12:28)
[2022-05-11 14:10] LABS: % Iron Saturation 19.4 % (18-50)
[2022-05-11 14:22] LABS: Folate 11.25 NG/ML (5.38-24.0)
[2022-05-11] MEDS: metFORMIN 500 MG TABLET PO SCH (21:03)
[2022-05-12] MEDS: ALBUTEROL/IPRATROPIUM 3 ML NEB RESP TX SCH ×3 (00:20→14:09)
[2022-05-12] MEDS: methylPREDNISolone SOD SUC 40 MG/1 ML VIAL IV SCH ×3 (00:40→15:32)
[2022-05-12 05:18] LABS: Basophils % 0.2 % (0.0-0.8); Eosinophils % 0.1 % (0.00-10.9); Hematocrit 43.3 VOL% (42.0-52.0); Hemoglobin 13.1 GM/DL (14.0-18.0); Immature Granulocytes % 0.8 %; Immature Granulocytes Absolute 0.12 #; Lymphocytes # 2.1 10*3/uL (1.4-4.0); Lymphocytes % 13.6 % (21.2-54.2); Mean Corpuscular HGB Conc 30.3 GM/DL (32-36); Mean Corpuscular Volume 86.3 FL (87-102); Mean Platelet Volume 11.9 FL (9.6-12.0); Monocytes # 0.9 10*3/uL (0.11-0.8); Monocytes % 5.7 % (1.7-12.7); Neutrophils % 79.6 % (38.7-73.9); Platelet Count 199 T/CUMM (130-400); Red Blood Count 5.02 MC/CUMM (3.8-5.5); Red Cell Distribution Width 15.2 % (9.3-17.3); White Blood Count 15.5 T/CUMM (4-12)
[2022-05-12 06:38] LABS: Calcium 9.4 MG/DL (8.5-10.1); Osmolality,Calculated 279.3 MOS/KG (273-304)
[2022-05-12] MEDS: INSULIN REGULAR 100 UNIT/ML SUBCUT SCH ×3 (07:52→16:27)
[2022-05-12] MEDS: INSULIN GLARGINE 100 UNIT/ML SUBCUT SCH (08:32)
[2022-05-12] MEDS: FLUTICASONE/SALMETEROL 500-50 DISKUS 14 DOSE INH SCH (08:32)
[2022-05-12] MEDS: metFORMIN 500 MG TABLET PO SCH (08:33)
[2022-05-12] MEDS: DOXYCYCLINE HYCLATE 100 MG CAPSULE PO SCH (08:33)
[2022-05-12] MEDS: PANTOPRAZOLE 40 MG TABLET PO SCH (08:33)
[2022-05-12] MEDS: MAGNESIUM OXIDE 400 MG TABLET PO SCH (08:33)
[2022-05-12] MEDS: MONTELUKAST 10 MG TABLET PO SCH (08:34)
[2022-05-12] MEDS: METOPROLOL SUCCINATE XL 100 MG TABLET PO SCH (08:34)
[2022-05-12] MEDS: DIGOXIN 0.25 MG TABLET PO SCH (12:13)
[2022-05-12] MEDS: ENOXAPARIN 40 MG/0.4 ML SYRINGE SUBCUT SCH (12:13)
[2022-05-12 16:29] VITALS: BP 129/63
== END 2022-05-12 17:04 | disposition home health service (06) | DRG 191 ==
LOC: N.ED 06:09 → N.EDINP 06:09 → SUATTDRO 10:32 → N.2W 11:15 → SUATTDRO 05-10 07:46
PROVIDERS: ADMIT Internal Medicine; ATTEND Internal Medicine

== ENCOUNTER 2022-05-28 10:13 | Inpatient (IN) ==
[2022-05-28] MEDS ORDERED: SODIUM CHLORIDE 0.9% 2,250 ML IV ONE (10:28)
[2022-05-28] MEDS ORDERED: ALBUTEROL/IPRATROPIUM 3 ML NEB RESP TX ONE (10:28)
[2022-05-28] MEDS ORDERED: ALBUTEROL 2.5 MG/3 ML NEB RESP TX ONE (10:29)
[2022-05-28] MEDS ORDERED: ALBUTEROL 2.5 MG/3 ML NEB RESP TX STA (10:30)
[2022-05-28] MEDS ORDERED: methylPREDNISolone SOD SUC 125 MG/2 ML VIAL IV STA (10:30)
[2022-05-28] MEDS ORDERED: ALBUTEROL/IPRATROPIUM 3 ML NEB RESP TX STA (10:30)
[2022-05-28 10:43] LABS: Basophils # 0.1 10*3/uL (0.0-0.2); Basophils % 0.3 % (0.0-0.8); Eosinophils # 0.1 10*3/uL (0.0-0.87); Eosinophils % 0.3 % (0.00-10.9); Immature Granulocytes % 0.6 %; Immature Granulocytes Absolute 0.15 #; Lymphocytes # 1.3 10*3/uL (1.4-4.0); Lymphocytes % 5.5 % (21.2-54.2); Mean Corpuscular HGB Conc 29.5 GM/DL (32-36); Mean Corpuscular Volume 89.3 FL (87-102); Mean Platelet Volume 10.7 FL (9.6-12.0); Monocytes # 0.8 10*3/uL (0.11-0.8); Monocytes % 3.5 % (1.7-12.7); Neutrophils % 89.8 % (38.7-73.9); Platelet Count 298 T/CUMM (130-400); Red Blood Count 4.48 MC/CUMM (3.8-5.5); Red Cell Distribution Width 14.4 % (9.3-17.3); White Blood Count 23.8 T/CUMM (4-12)
[2022-05-28 10:44] LABS: Hemoglobin 11.8 GM/DL (14.0-18.0)
[2022-05-28 10:47] LABS: Arterial Base Excess iSTAT 9 MMOL/L (-2.5-2.5); Arterial Bicarbonate iSTAT 35.8 MMOL/L (20-26); Arterial O2 Saturation iSTAT 89 % (95-100); Arterial PCO2 iSTAT 58 MM HG (35-48); Arterial PO2 iSTAT 59 MM HG (80-95); Arterial Total CO2 iSTAT 38 MMO/L (23-27); Arterial pH iSTAT 7.401 (7.35-7.45)
[2022-05-28 10:57] LABS: PT Patient Result 10.9 SECS (10.1-12.1); Partial Thromboplastin Time 23.4 SECS (23.7-32.9)
[2022-05-28 11:05] LABS: Mucus,Urine Occasional /LPF (Occasional); RBC,Urine 2 /HPF (0-4); Squamous Epithelial Cell,Urine Occasional /HPF (0-10)
[2022-05-28 11:06] LABS: Bilirubin,Urine Negative (Negative); Blood, Urine Negative (Negative); Glucose,Urine (UA) 500 mg/dL (Negative); Ketones,Urine Negative (Negative); Nitrite,Urine Negative (Negative); Protein,Urine Negative (Negative); Urine Appearance Clear (Clear); Urine Color Yellow (Yellow); Urine Urobilinogen 0.2 eU/dL (<2.0); Urine pH 6.5 (4.5-8.0)
[2022-05-28 11:07] LABS: Lymphocytes 3 % (20-55); Total Cells Counted 100
[2022-05-28 11:08] LABS: Platelet Estimate Adequate
[2022-05-28] MEDS: PIPERACILLIN/TAZOBACTAM 3,375 MG in SODIUM CHLORIDE 0.9% 100 ML IV SCH ×2 (11:23→17:57)
[2022-05-28 11:44] LABS: Alanine Aminotransferase 13 U/L (16-61); Albumin 2.9 G/DL (3.4-5.0); Alkaline Phosphatase 67 U/L (45-117); Aspartate Amino Transferase 7 U/L (0-37); Bilirubin,Total < 0.39 MG/DL (0.20-1.00); Blood Urea Nitrogen 15 MG/DL (7-18); Calcium 9.5 MG/DL (8.5-10.1); Carbon Dioxide 36 MMOL/L (21-32); Chloride 101 MMOL/L (98-107); Glucose 396 MG/DL (74-106); Osmolality,Calculated 294.5 MOS/KG (273-304); Sodium 139 MMOL/L (136-145); Total Protein 6.2 G/DL (6.4-8.2)
[2022-05-28] MEDS ORDERED: VANCOMYCIN INJ 1,000 MG in SODIUM CHLORIDE 0.9% 250 ML IV ONE (12:00)
[2022-05-28] MEDS ORDERED: ACETAMINOPHEN 325 MG TABLET PO ONE (12:13)
[2022-05-28] MEDS ORDERED: GLUCAGON 1 MG VIAL IM PRN (13:05)
[2022-05-28] MEDS ORDERED: ONDANSETRON 4 MG/2 ML VIAL IV PRN (13:05)
[2022-05-28] MEDS: SODIUM CHLORIDE 0.9% 1,000 ML IV SCH (13:52)
[2022-05-28] MEDS: guaiFENesin/DM ER 600-30 MG TABLET PO SCH ×2 (13:53→20:50)
[2022-05-28] MEDS: ENOXAPARIN 40 MG/0.4 ML SYRINGE SUBCUT SCH (14:49)
[2022-05-28] MEDS: LEVOFLOXACIN INJ 750 MG/150 ML PREMIX IV SCH ×2 (14:50→20:55)
[2022-05-28] MEDS: INSULIN LISPRO 100 UNIT/ML SUBCUT SCH ×2 (16:45→20:53)
[2022-05-28] MEDS: methylPREDNISolone SOD SUC 40 MG/1 ML VIAL IV SCH (16:50)
[2022-05-28] MEDS: ALBUTEROL/IPRATROPIUM 3 ML NEB RESP TX SCH (19:38)
[2022-05-28] MEDS ORDERED: VANCOMYCIN INJ 1,250 MG in SODIUM CHLORIDE 0.9% 250 ML IV SCH (21:00)
[2022-05-29] MEDS: ALBUTEROL/IPRATROPIUM 3 ML NEB RESP TX SCH ×4 (00:07→18:58)
[2022-05-29] MEDS: SODIUM CHLORIDE 0.9% 1,000 ML IV SCH ×3 (02:00→20:50)
[2022-05-29] MEDS: VANCOMYCIN INJ 1,000 MG in SODIUM CHLORIDE 0.9% 250 ML IV SCH ×2 (02:17→12:59)
[2022-05-29] MEDS: methylPREDNISolone SOD SUC 40 MG/1 ML VIAL IV SCH ×4 (02:18→17:03)
[2022-05-29] MEDS: PIPERACILLIN/TAZOBACTAM 3,375 MG in SODIUM CHLORIDE 0.9% 100 ML IV SCH ×3 (05:06→18:26)
[2022-05-29 07:56] LABS: Calcium 9.5 MG/DL (8.5-10.1); Osmolality,Calculated 291.5 MOS/KG (273-304); Potassium 4.3 MMOL/L (3.5-5.1)
[2022-05-29 08:04] LABS: Basophils # 0.1 10*3/uL (0.0-0.2); Basophils % 0.1 % (0.0-0.8); Eosinophils % 0.1 % (0.00-10.9); Hematocrit 40.2 VOL% (42.0-52.0); Immature Granulocytes % 3.6 %; Immature Granulocytes Absolute 1.23 #; Lymphocytes # 0.9 10*3/uL (1.4-4.0); Lymphocytes % 2.6 % (21.2-54.2); Mean Corpuscular HGB Conc 30.1 GM/DL (32-36); Mean Corpuscular Volume 88.7 FL (87-102); Mean Platelet Volume 11.6 FL (9.6-12.0); Monocytes # 0.8 10*3/uL (0.11-0.8); Monocytes % 2.2 % (1.7-12.7); Neutrophils % 91.4 % (38.7-73.9); Red Blood Count 4.53 MC/CUMM (3.8-5.5); Red Cell Distribution Width 14.4 % (9.3-17.3); White Blood Count 33.9 T/CUMM (4-12)
[2022-05-29 08:05] LABS: Hemoglobin 12.1 GM/DL (14.0-18.0); Platelet Count 221 T/CUMM (130-400)
[2022-05-29 08:13] LABS: Platelet Estimate Adequate
[2022-05-29] MEDS ORDERED: NON-FORMULARY MEDICATION (Tiotropium Bromide [Spiriva With Handihaler] 18 mcg Capsule, W/I INH SCH (09:00)
[2022-05-29] MEDS: INSULIN LISPRO 100 UNIT/ML SUBCUT SCH ×3 (09:40→17:04)
[2022-05-29] MEDS: INSULIN GLARGINE 100 UNIT/ML SUBCUT SCH (09:41)
[2022-05-29] MEDS: METOPROLOL SUCCINATE XL 100 MG TABLET PO SCH (09:41)
[2022-05-29] MEDS: FERROUS SULFATE 325 MG TABLET PO SCH (09:41)
[2022-05-29] MEDS: CHOLECALCIFEROL 1,000 UNIT TABLET PO SCH (09:41)
[2022-05-29] MEDS: MONTELUKAST 10 MG TABLET PO SCH (09:41)
[2022-05-29] MEDS: DIGOXIN 0.25 MG TABLET PO SCH (09:42)
[2022-05-29] MEDS: guaiFENesin/DM ER 600-30 MG TABLET PO SCH ×2 (09:42→22:17)
[2022-05-29] MEDS: PANTOPRAZOLE 40 MG TABLET PO SCH (09:42)
[2022-05-29] MEDS: ENOXAPARIN 40 MG/0.4 ML SYRINGE SUBCUT SCH (15:57)
[2022-05-29] MEDS ORDERED: METHOCARBAMOL 500 MG TABLET PO PRN (16:17)
[2022-05-29] MEDS: LEVOFLOXACIN INJ 750 MG/150 ML PREMIX IV SCH (22:17)
[2022-05-30] MEDS: METOPROLOL SUCCINATE XL 100 MG TABLET PO SCH ×3 (00:12→21:59)
[2022-05-30] MEDS: INSULIN LISPRO 100 UNIT/ML SUBCUT SCH ×5 (00:17→21:59)
[2022-05-30] MEDS: methylPREDNISolone SOD SUC 40 MG/1 ML VIAL IV SCH ×3 (00:26→10:49)
[2022-05-30] MEDS: VANCOMYCIN INJ 1,000 MG in SODIUM CHLORIDE 0.9% 250 ML IV SCH (00:50)
[2022-05-30] MEDS: ALBUTEROL/IPRATROPIUM 3 ML NEB RESP TX SCH ×4 (00:58→19:18)
[2022-05-30] MEDS: PIPERACILLIN/TAZOBACTAM 3,375 MG in SODIUM CHLORIDE 0.9% 100 ML IV SCH ×3 (04:36→17:53)
[2022-05-30 06:34] LABS: Alanine Aminotransferase 63 U/L (16-61); Albumin 2.3 G/DL (3.4-5.0); Alkaline Phosphatase 74 U/L (45-117); Aspartate Amino Transferase 23 U/L (0-37); Bilirubin,Total < 0.39 MG/DL (0.20-1.00); Blood Urea Nitrogen 17 MG/DL (7-18); Calcium 9.8 MG/DL (8.5-10.1); Carbon Dioxide 28 MMOL/L (21-32); Chloride 107 MMOL/L (98-107); Glucose 273 MG/DL (74-106); Osmolality,Calculated 288.5 MOS/KG (273-304); Potassium 4.2 MMOL/L (3.5-5.1); Sodium 139 MMOL/L (136-145); Total Protein 6.7 G/DL (6.4-8.2)
[2022-05-30 06:39] LABS: Basophils % 0.1 % (0.0-0.8); Hematocrit 37.1 VOL% (42.0-52.0); Immature Granulocytes % 2.6 %; Immature Granulocytes Absolute 0.83 #; Lymphocytes # 1.1 10*3/uL (1.4-4.0); Lymphocytes % 3.3 % (21.2-54.2); Mean Corpuscular HGB Conc 29.6 GM/DL (32-36); Mean Platelet Volume 10.6 FL (9.6-12.0); Monocytes % 3.2 % (1.7-12.7); NRBC # 0.02 10*3/uL; Neutrophils % 90.8 % (38.7-73.9); Platelet Count 263 T/CUMM (130-400); Red Blood Count 4.12 MC/CUMM (3.8-5.5); Red Cell Distribution Width 14.1 % (9.3-17.3); White Blood Count 31.6 T/CUMM (4-12)
[2022-05-30 06:45] LABS: Lymphocytes 5 % (20-55); Platelet Estimate Normal; Total Cells Counted 100
[2022-05-30] MEDS ORDERED: GLUCAGON 1 MG VIAL IM PRN (07:37)
[2022-05-30] MEDS ORDERED: DEXTROSE 10% 250 ML BAG IV PRN (07:37)
[2022-05-30] MEDS: INSULIN GLARGINE 100 UNIT/ML SUBCUT SCH ×2 (11:56→12:01)
[2022-05-30] MEDS: SODIUM CHLORIDE 0.9% 1,000 ML IV SCH ×3 (11:56→14:38)
[2022-05-30] MEDS: PANTOPRAZOLE 40 MG TABLET PO SCH (11:58)
[2022-05-30] MEDS: CHOLECALCIFEROL 1,000 UNIT TABLET PO SCH (11:59)
[2022-05-30] MEDS: guaiFENesin/DM ER 600-30 MG TABLET PO SCH ×2 (12:00→21:59)
[2022-05-30] MEDS: DIGOXIN 0.25 MG TABLET PO SCH (12:00)
[2022-05-30] MEDS: MONTELUKAST 10 MG TABLET PO SCH (12:00)
[2022-05-30] MEDS: ENOXAPARIN 40 MG/0.4 ML SYRINGE SUBCUT SCH (14:16)
[2022-05-30] MEDS ORDERED: methylPREDNISolone SOD SUC 40 MG/1 ML VIAL IV SCH (21:00)
[2022-05-30] MEDS: LEVOFLOXACIN INJ 750 MG/150 ML PREMIX IV SCH (21:58)
[2022-05-31] MEDS: ALBUTEROL/IPRATROPIUM 3 ML NEB RESP TX SCH ×4 (00:02→19:00)
[2022-05-31] MEDS: PIPERACILLIN/TAZOBACTAM 3,375 MG in SODIUM CHLORIDE 0.9% 100 ML IV SCH ×3 (01:32→18:02)
[2022-05-31 05:55] LABS: Basophils % 0.1 % (0.0-0.8); Hematocrit 37.5 VOL% (42.0-52.0); Immature Granulocytes % 0.9 %; Immature Granulocytes Absolute 0.18 #; Lymphocytes # 0.9 10*3/uL (1.4-4.0); Lymphocytes % 4.1 % (21.2-54.2); Mean Corpuscular HGB Conc 29.6 GM/DL (32-36); Mean Corpuscular Volume 88.2 FL (87-102); Mean Platelet Volume 11.6 FL (9.6-12.0); Monocytes # 0.6 10*3/uL (0.11-0.8); Monocytes % 2.6 % (1.7-12.7); NRBC # 0.02 10*3/uL; Neutrophils % 92.3 % (38.7-73.9); Platelet Count 274 T/CUMM (130-400); Red Blood Count 4.25 MC/CUMM (3.8-5.5); Red Cell Distribution Width 14.1 % (9.3-17.3); White Blood Count 20.9 T/CUMM (4-12)
[2022-05-31 05:57] LABS: Alanine Aminotransferase 49 U/L (16-61); Albumin 2.2 G/DL (3.4-5.0); Alkaline Phosphatase 82 U/L (45-117); Aspartate Amino Transferase 13 U/L (0-37); Bilirubin,Total < 0.39 MG/DL (0.20-1.00); Blood Urea Nitrogen 15 MG/DL (7-18); Calcium 9.9 MG/DL (8.5-10.1); Carbon Dioxide 28 MMOL/L (21-32); Chloride 108 MMOL/L (98-107); Glucose 215 MG/DL (74-106); Osmolality,Calculated 283.5 MOS/KG (273-304); Potassium 4.1 MMOL/L (3.5-5.1); Sodium 139 MMOL/L (136-145); Total Protein 6.4 G/DL (6.4-8.2)
[2022-05-31 06:01] LABS: Hemoglobin 11.1 GM/DL (14.0-18.0)
[2022-05-31 06:42] LABS: Band Neutrophils 1 % (0-10); Hypochromia 1+; Lymphocytes 2 % (20-55); Total Cells Counted 100
[2022-05-31 06:43] LABS: Microcytosis Slight; Platelet Estimate Normal
[2022-05-31] MEDS ORDERED: INSULIN GLARGINE 100 UNIT/ML SUBCUT ONE (09:00)
[2022-05-31] MEDS: DIGOXIN 0.25 MG TABLET PO SCH (09:34)
[2022-05-31] MEDS: guaiFENesin/DM ER 600-30 MG TABLET PO SCH ×2 (09:34→22:04)
[2022-05-31] MEDS: PANTOPRAZOLE 40 MG TABLET PO SCH (09:34)
[2022-05-31] MEDS: METOPROLOL SUCCINATE XL 100 MG TABLET PO SCH ×2 (09:34→22:04)
[2022-05-31] MEDS: CHOLECALCIFEROL 1,000 UNIT TABLET PO SCH (09:35)
[2022-05-31] MEDS: MONTELUKAST 10 MG TABLET PO SCH (09:35)
[2022-05-31] MEDS: INSULIN LISPRO 100 UNIT/ML SUBCUT SCH ×4 (09:35→22:04)
[2022-05-31] MEDS: INSULIN GLARGINE 100 UNIT/ML SUBCUT SCH (09:36)
[2022-05-31] MEDS: methylPREDNISolone SOD SUC 40 MG/1 ML VIAL IV SCH ×2 (12:08→22:06)
[2022-05-31] MEDS: ENOXAPARIN 40 MG/0.4 ML SYRINGE SUBCUT SCH (14:24)
[2022-05-31 16:06] LABS: CDT Result Negative (Negative); CDT Specimen Source STOOL
[2022-05-31] MEDS: LEVOFLOXACIN INJ 750 MG/150 ML PREMIX IV SCH (22:03)
[2022-06-01] MEDS: PIPERACILLIN/TAZOBACTAM 3,375 MG in SODIUM CHLORIDE 0.9% 100 ML IV SCH ×2 (02:38→09:42)
[2022-06-01 06:13] LABS: Basophils % 0.1 % (0.0-0.8); Hematocrit 35.7 VOL% (42.0-52.0); Hemoglobin 10.6 GM/DL (14.0-18.0); Immature Granulocytes Absolute 0.14 #; Lymphocytes # 1.6 10*3/uL (1.4-4.0); Lymphocytes % 11.2 % (21.2-54.2); Mean Corpuscular HGB Conc 29.7 GM/DL (32-36); Mean Corpuscular Volume 87.7 FL (87-102); Mean Platelet Volume 10.6 FL (9.6-12.0); Monocytes # 0.6 10*3/uL (0.11-0.8); Monocytes % 4.5 % (1.7-12.7); Neutrophils % 83.2 % (38.7-73.9); Platelet Count 277 T/CUMM (130-400); Red Blood Count 4.07 MC/CUMM (3.8-5.5); Red Cell Distribution Width 13.8 % (9.3-17.3); White Blood Count 14.1 T/CUMM (4-12)
[2022-06-01 06:28] LABS: Alanine Aminotransferase 37 U/L (16-61); Albumin 1.9 G/DL (3.4-5.0); Alkaline Phosphatase 63 U/L (45-117); Aspartate Amino Transferase 12 U/L (0-37); Bilirubin,Total < 0.39 MG/DL (0.20-1.00); Blood Urea Nitrogen 14 MG/DL (7-18); Calcium 8.6 MG/DL (8.5-10.1); Carbon Dioxide 36 MMOL/L (21-32); Chloride 103 MMOL/L (98-107); Glucose 152 MG/DL (74-106); Osmolality,Calculated 284.3 MOS/KG (273-304); Potassium 3.6 MMOL/L (3.5-5.1); Sodium 141 MMOL/L (136-145); Total Protein 5.5 G/DL (6.4-8.2)
[2022-06-01] MEDS: ALBUTEROL/IPRATROPIUM 3 ML NEB RESP TX SCH ×4 (07:11→19:33)
[2022-06-01] MEDS: FLUTICASONE/SALMETEROL 500-50 DISKUS 14 DOSE INH SCH ×2 (09:42→21:12)
[2022-06-01] MEDS: PANTOPRAZOLE 40 MG TABLET PO SCH (09:42)
[2022-06-01] MEDS: INSULIN LISPRO 100 UNIT/ML SUBCUT SCH ×4 (09:42→21:10)
[2022-06-01] MEDS: FERROUS SULFATE 325 MG TABLET PO SCH (09:42)
[2022-06-01] MEDS: METOPROLOL SUCCINATE XL 100 MG TABLET PO SCH ×2 (09:42→21:09)
[2022-06-01] MEDS: MONTELUKAST 10 MG TABLET PO SCH (09:42)
[2022-06-01] MEDS: guaiFENesin/DM ER 600-30 MG TABLET PO SCH ×2 (09:42→21:10)
[2022-06-01] MEDS: DIGOXIN 0.25 MG TABLET PO SCH (09:42)
[2022-06-01] MEDS: INSULIN GLARGINE 100 UNIT/ML SUBCUT SCH (09:42)
[2022-06-01] MEDS: CHOLECALCIFEROL 1,000 UNIT TABLET PO SCH (09:42)
[2022-06-01] MEDS: NYSTATIN 500,000 UNIT/5 ML UDCUP SWISH/SWAL SCH ×3 (12:53→21:10)
[2022-06-01] MEDS: ENOXAPARIN 40 MG/0.4 ML SYRINGE SUBCUT SCH (13:01)
[2022-06-01] MEDS: LEVOFLOXACIN INJ 750 MG/150 ML PREMIX IV SCH (21:09)
[2022-06-01] MEDS ORDERED: methylPREDNISolone SOD SUC 40 MG/1 ML VIAL IV SCH (22:00)
[2022-06-02] MEDS: ALBUTEROL/IPRATROPIUM 3 ML NEB RESP TX SCH ×3 (00:21→13:10)
[2022-06-02 06:01] LABS: Basophils % 0.2 % (0.0-0.8); Eosinophils % 0.1 % (0.00-10.9); Hematocrit 40.7 VOL% (42.0-52.0); Hemoglobin 12.3 GM/DL (14.0-18.0); Immature Granulocytes % 1.2 %; Immature Granulocytes Absolute 0.16 #; Lymphocytes # 2.5 10*3/uL (1.4-4.0); Lymphocytes % 19.6 % (21.2-54.2); Mean Corpuscular HGB Conc 30.2 GM/DL (32-36); Mean Platelet Volume 10.3 FL (9.6-12.0); Monocytes # 0.9 10*3/uL (0.11-0.8); Monocytes % 6.9 % (1.7-12.7); Platelet Count 296 T/CUMM (130-400); Red Blood Count 4.68 MC/CUMM (3.8-5.5); Red Cell Distribution Width 13.8 % (9.3-17.3)
[2022-06-02 06:21] LABS: Alanine Aminotransferase 33 U/L (16-61); Albumin 2.2 G/DL (3.4-5.0); Alkaline Phosphatase 62 U/L (45-117); Aspartate Amino Transferase 10 U/L (0-37); Bilirubin,Total < 0.39 MG/DL (0.20-1.00); Blood Urea Nitrogen 12 MG/DL (7-18); Calcium 9.1 MG/DL (8.5-10.1); Carbon Dioxide 36 MMOL/L (21-32); Chloride 103 MMOL/L (98-107); Glucose 163 MG/DL (74-106); Osmolality,Calculated 286.1 MOS/KG (273-304); Potassium 3.5 MMOL/L (3.5-5.1); Sodium 142 MMOL/L (136-145)
[2022-06-02] MEDS ORDERED: LEVOFLOXACIN 500 MG TABLET PO SCH (08:30)
[2022-06-02] MEDS ORDERED: predniSONE 20 MG TABLET PO SCH (09:00)
[2022-06-02] MEDS: INSULIN GLARGINE 100 UNIT/ML SUBCUT SCH (09:20)
[2022-06-02] MEDS: INSULIN LISPRO 100 UNIT/ML SUBCUT SCH ×2 (09:44→13:07)
[2022-06-02] MEDS: guaiFENesin/DM ER 600-30 MG TABLET PO SCH (09:45)
[2022-06-02] MEDS: CHOLECALCIFEROL 1,000 UNIT TABLET PO SCH (09:45)
[2022-06-02] MEDS: MONTELUKAST 10 MG TABLET PO SCH (09:45)
[2022-06-02] MEDS: NYSTATIN 500,000 UNIT/5 ML UDCUP SWISH/SWAL SCH ×2 (09:45→13:07)
[2022-06-02] MEDS: FLUTICASONE/SALMETEROL 500-50 DISKUS 14 DOSE INH SCH (09:45)
[2022-06-02] MEDS: METOPROLOL SUCCINATE XL 100 MG TABLET PO SCH (09:45)
[2022-06-02] MEDS: DIGOXIN 0.25 MG TABLET PO SCH (09:45)
[2022-06-02] MEDS: PANTOPRAZOLE 40 MG TABLET PO SCH (09:45)
[2022-06-02 12:04] VITALS: BP 143/65
[2022-06-02] MEDS: ENOXAPARIN 40 MG/0.4 ML SYRINGE SUBCUT SCH (13:07)
[2022-06-03] MEDS ORDERED: INSULIN GLARGINE 100 UNIT/ML SUBCUT SCH (08:00)
== END 2022-06-02 15:29 | disposition home or self-care (01) | DRG 871 ==
LOC: N.ED 10:13 → SUATTDRO 13:06 → N.TELEN 13:51
PROVIDERS: ADMIT Family Medicine; ATTEND Emergency Medicine

== ENCOUNTER 2022-07-08 12:25 | Inpatient (IN) ==
[2022-07-08] MEDS ORDERED: cefTRIAXone 1,000 MG in SODIUM CHLORIDE 0.9% 100 ML IV STA (13:23)
[2022-07-08 13:32] LABS: Basophils # 0.1 10*3/uL (0.0-0.2); Basophils % 0.2 % (0.0-0.8); Hematocrit 42.1 VOL% (42.0-52.0); Immature Granulocytes % 1.6 %; Immature Granulocytes Absolute 0.63 #; Lymphocytes # 1.1 10*3/uL (1.4-4.0); Lymphocytes % 2.8 % (21.2-54.2); Mean Corpuscular HGB Conc 30.9 GM/DL (32-36); Mean Corpuscular Volume 89.8 FL (87-102); Mean Platelet Volume 10.1 FL (9.6-12.0); Monocytes # 1.6 10*3/uL (0.11-0.8); Neutrophils % 91.4 % (38.7-73.9); Platelet Count 359 T/CUMM (130-400); Red Blood Count 4.69 MC/CUMM (3.8-5.5); Red Cell Distribution Width 15.9 % (9.3-17.3); White Blood Count 39.5 T/CUMM (4-12)
[2022-07-08 13:47] LABS: Albumin 3.3 G/DL (3.4-5.0); Bilirubin,Total 0.6 MG/DL (0.20-1.00); Calcium 10.4 MG/DL (8.5-10.1); Osmolality,Calculated 277.5 MOS/KG (273-304); Potassium 4.3 MMOL/L (3.5-5.1); Total Protein 6.6 G/DL (6.4-8.2)
[2022-07-08] MEDS ORDERED: SODIUM CHLORIDE 0.9% 1,000 ML IV STA (13:47)
[2022-07-08 13:59] LABS: Band Neutrophils 4 % (0-10); Lymphocytes 4 % (20-55); Total Cells Counted 100
[2022-07-08 14:01] LABS: Howell-Jolly Bodies Few; Platelet Estimate Adequate; Polychromasia 1+
[2022-07-08] MEDS ORDERED: ACETAMINOPHEN 325 MG TABLET PO PRN (15:37)
[2022-07-08] MEDS ORDERED: ONDANSETRON 4 MG/2 ML VIAL IV PRN (15:37)
[2022-07-08] MEDS ORDERED: ALBUTEROL/IPRATROPIUM 3 ML NEB RESP TX PRN (15:40)
[2022-07-08] MEDS ORDERED: ALBUTEROL/IPRATROPIUM 3 ML NEB RESP TX STA (15:40)
[2022-07-08] MEDS ORDERED: guaiFENesin 200 MG/10 ML UDCUP PO PRN (15:42)
[2022-07-08] MEDS ORDERED: ZALEPLON 5 MG CAPSULE PO PRN (15:42)
[2022-07-08] MEDS ORDERED: GLUCAGON 1 MG VIAL IM PRN (15:46)
[2022-07-08] MEDS ORDERED: DEXTROSE 10% 250 ML BAG IV PRN (15:46)
[2022-07-08] MEDS: methylPREDNISolone SOD SUC 40 MG/1 ML VIAL IV SCH (16:37)
[2022-07-08] MEDS: ENOXAPARIN 40 MG/0.4 ML SYRINGE SUBCUT SCH (16:40)
[2022-07-08] MEDS: SODIUM CHLORIDE 0.9% 1,000 ML IV SCH (16:40)
[2022-07-08] MEDS: INSULIN LISPRO 100 UNIT/ML SUBCUT SCH ×2 (16:49→21:11)
[2022-07-08] MEDS: ALBUTEROL/IPRATROPIUM 3 ML NEB RESP TX SCH ×2 (18:57→23:42)
[2022-07-08] MEDS: FLUTICASONE/SALMETEROL 500-50 DISKUS 14 DOSE INH SCH (21:09)
[2022-07-08] MEDS: INSULIN GLARGINE 100 UNIT/ML SUBCUT SCH (22:29)
[2022-07-08] MEDS: traMADol 50 MG TABLET PO PRN (22:32)
[2022-07-09] MEDS: methylPREDNISolone SOD SUC 40 MG/1 ML VIAL IV SCH ×3 (00:22→17:50)
[2022-07-09] MEDS: ALBUTEROL/IPRATROPIUM 3 ML NEB RESP TX SCH ×6 (03:45→23:50)
[2022-07-09 05:58] LABS: Basophils % 0.1 % (0.0-0.8); Hematocrit 33.7 VOL% (42.0-52.0); Hemoglobin 10.3 GM/DL (14.0-18.0); Immature Granulocytes % 0.9 %; Immature Granulocytes Absolute 0.25 #; Lymphocytes # 0.8 10*3/uL (1.4-4.0); Lymphocytes % 2.7 % (21.2-54.2); Mean Corpuscular HGB Conc 30.6 GM/DL (32-36); Mean Corpuscular Volume 90.1 FL (87-102); Mean Platelet Volume 10.4 FL (9.6-12.0); Monocytes # 0.5 10*3/uL (0.11-0.8); Monocytes % 1.9 % (1.7-12.7); Neutrophils % 94.4 % (38.7-73.9); Platelet Count 262 T/CUMM (130-400); Red Blood Count 3.74 MC/CUMM (3.8-5.5); Red Cell Distribution Width 15.8 % (9.3-17.3); White Blood Count 28.2 T/CUMM (4-12)
[2022-07-09 06:24] LABS: Albumin 2.7 G/DL (3.4-5.0); Bilirubin,Total 0.4 MG/DL (0.20-1.00); Calcium 10.2 MG/DL (8.5-10.1); Osmolality,Calculated 287.5 MOS/KG (273-304); Potassium 4.4 MMOL/L (3.5-5.1); Total Protein 6.1 G/DL (6.4-8.2)
[2022-07-09 06:25] LABS: Hypochromia Slight; Lymphocytes 2 % (20-55); Microcytosis Slight; Platelet Estimate Adequate; Total Cells Counted 100
[2022-07-09] MEDS ORDERED: CHOLECALCIFEROL 1,000 UNIT TABLET PO SCH (09:00)
[2022-07-09] MEDS: SODIUM CHLORIDE 0.9% 1,000 ML IV SCH ×2 (09:09→20:12)
[2022-07-09] MEDS: INSULIN LISPRO 100 UNIT/ML SUBCUT SCH ×4 (09:26→21:36)
[2022-07-09] MEDS: INSULIN GLARGINE 100 UNIT/ML SUBCUT SCH ×2 (09:28→21:38)
[2022-07-09] MEDS: PANTOPRAZOLE 40 MG TABLET PO SCH (09:31)
[2022-07-09] MEDS: THEOPHYLLINE ER (24 HR) 400 MG CAPSULE PO SCH (09:31)
[2022-07-09] MEDS: FLUTICASONE/SALMETEROL 500-50 DISKUS 14 DOSE INH SCH ×2 (09:33→21:36)
[2022-07-09] MEDS: VANCOMYCIN INJ 1,250 MG in SODIUM CHLORIDE 0.9% 250 ML IV SCH (12:20)
[2022-07-09] MEDS: DIGOXIN 0.25 MG TABLET PO SCH (12:23)
[2022-07-09] MEDS: PIPERACILLIN/TAZOBACTAM 3,375 MG in SODIUM CHLORIDE 0.9% 100 ML IV SCH ×2 (14:38→21:35)
[2022-07-09] MEDS: ENOXAPARIN 40 MG/0.4 ML SYRINGE SUBCUT SCH (21:36)
[2022-07-10] MEDS: methylPREDNISolone SOD SUC 40 MG/1 ML VIAL IV SCH ×3 (00:13→22:14)
[2022-07-10] MEDS: PIPERACILLIN/TAZOBACTAM 3,375 MG in SODIUM CHLORIDE 0.9% 100 ML IV SCH ×3 (03:34→18:44)
[2022-07-10] MEDS: ALBUTEROL/IPRATROPIUM 3 ML NEB RESP TX SCH ×6 (03:36→23:09)
[2022-07-10 05:12] LABS: Hematocrit 32.1 VOL% (42.0-52.0); Hemoglobin 9.7 GM/DL (14.0-18.0); Immature Granulocytes % 0.8 %; Immature Granulocytes Absolute 0.18 #; Lymphocytes # 0.6 10*3/uL (1.4-4.0); Lymphocytes % 2.4 % (21.2-54.2); Mean Corpuscular HGB Conc 30.2 GM/DL (32-36); Mean Corpuscular Volume 90.7 FL (87-102); Mean Platelet Volume 10.9 FL (9.6-12.0); Monocytes # 0.5 10*3/uL (0.11-0.8); Monocytes % 2.1 % (1.7-12.7); Neutrophils % 94.7 % (38.7-73.9); Platelet Count 249 T/CUMM (130-400); Red Blood Count 3.54 MC/CUMM (3.8-5.5); Red Cell Distribution Width 16.1 % (9.3-17.3); White Blood Count 23.1 T/CUMM (4-12)
[2022-07-10 05:36] LABS: Calcium 9.9 MG/DL (8.5-10.1); Osmolality,Calculated 289.7 MOS/KG (273-304); Potassium 4.2 MMOL/L (3.5-5.1)
[2022-07-10 05:58] LABS: Hypochromia Slight; Lymphocytes 1 % (20-55); Total Cells Counted 100
[2022-07-10 05:59] LABS: Microcytosis Slight
[2022-07-10] MEDS: traMADol 50 MG TABLET PO PRN (09:58)
[2022-07-10] MEDS: FERROUS SULFATE 325 MG TABLET PO SCH (09:59)
[2022-07-10] MEDS: THEOPHYLLINE ER (24 HR) 400 MG CAPSULE PO SCH (09:59)
[2022-07-10] MEDS: PANTOPRAZOLE 40 MG TABLET PO SCH (09:59)
[2022-07-10] MEDS: METOPROLOL SUCCINATE XL 100 MG TABLET PO SCH ×2 (09:59→22:14)
[2022-07-10] MEDS: INSULIN LISPRO 100 UNIT/ML SUBCUT SCH ×4 (10:00→22:14)
[2022-07-10] MEDS: SODIUM CHLORIDE 0.9% 1,000 ML IV SCH ×2 (10:00)
[2022-07-10] MEDS: FLUTICASONE/SALMETEROL 500-50 DISKUS 14 DOSE INH SCH ×2 (10:01→22:15)
[2022-07-10] MEDS: VANCOMYCIN INJ 1,250 MG in SODIUM CHLORIDE 0.9% 250 ML IV SCH (10:05)
[2022-07-10] MEDS: INSULIN GLARGINE 100 UNIT/ML SUBCUT SCH ×2 (12:48→22:15)
[2022-07-10] MEDS: DIGOXIN 0.25 MG TABLET PO SCH (13:15)
[2022-07-10] MEDS: ENOXAPARIN 40 MG/0.4 ML SYRINGE SUBCUT SCH (22:14)
[2022-07-11] MEDS: VANCOMYCIN INJ 1,250 MG in SODIUM CHLORIDE 0.9% 250 ML IV SCH ×2 (01:08→22:22)
[2022-07-11] MEDS: ALBUTEROL/IPRATROPIUM 3 ML NEB RESP TX SCH ×6 (03:20→22:31)
[2022-07-11] MEDS: PIPERACILLIN/TAZOBACTAM 3,375 MG in SODIUM CHLORIDE 0.9% 100 ML IV SCH ×3 (03:46→18:03)
[2022-07-11 06:03] LABS: Basophils % 0.1 % (0.0-0.8); Hematocrit 34.7 VOL% (42.0-52.0); Hemoglobin 10.4 GM/DL (14.0-18.0); Immature Granulocytes % 0.9 %; Immature Granulocytes Absolute 0.19 #; Lymphocytes # 1.1 10*3/uL (1.4-4.0); Lymphocytes % 5.6 % (21.2-54.2); Mean Corpuscular Volume 91.3 FL (87-102); Mean Platelet Volume 11.8 FL (9.6-12.0); Monocytes # 0.9 10*3/uL (0.11-0.8); Monocytes % 4.3 % (1.7-12.7); Neutrophils % 89.1 % (38.7-73.9); Platelet Count 228 T/CUMM (130-400); Red Cell Distribution Width 15.7 % (9.3-17.3); White Blood Count 20.2 T/CUMM (4-12)
[2022-07-11 06:19] LABS: Calcium 9.8 MG/DL (8.5-10.1); Potassium 4.6 MMOL/L (3.5-5.1)
[2022-07-11 06:41] LABS: Lymphocytes 8 % (20-55); Platelet Estimate Adequate; Total Cells Counted 100
[2022-07-11] MEDS: SODIUM CHLORIDE 0.9% 1,000 ML IV SCH ×2 (07:09→13:34)
[2022-07-11] MEDS ORDERED: MAGNESIUM SULF RIDER 4 GM/100 ML PREMIX IV PRN (08:04)
[2022-07-11] MEDS ORDERED: MAGNESIUM SULF RIDER 2 GM/50 ML PREMIX IV PRN (08:04)
[2022-07-11] MEDS: PANTOPRAZOLE 40 MG TABLET PO SCH (08:38)
[2022-07-11] MEDS: THEOPHYLLINE ER (24 HR) 400 MG CAPSULE PO SCH (08:38)
[2022-07-11] MEDS: FLUTICASONE/SALMETEROL 500-50 DISKUS 14 DOSE INH SCH ×2 (08:38→21:32)
[2022-07-11] MEDS: METOPROLOL SUCCINATE XL 100 MG TABLET PO SCH ×2 (08:38→21:31)
[2022-07-11] MEDS: methylPREDNISolone SOD SUC 40 MG/1 ML VIAL IV SCH (08:40)
[2022-07-11] MEDS: INSULIN LISPRO 100 UNIT/ML SUBCUT SCH ×4 (08:40→21:31)
[2022-07-11] MEDS ORDERED: INSULIN GLARGINE 100 UNIT/ML SUBCUT SCH (09:00)
[2022-07-11] MEDS: NYSTATIN 500,000 UNIT/5 ML UDCUP SWISH/SWAL SCH ×4 (11:20→21:31)
[2022-07-11] MEDS: guaiFENesin 200 MG/10 ML UDCUP PO PRN ×2 (11:22→16:25)
[2022-07-11] MEDS: DIGOXIN 0.25 MG TABLET PO SCH (13:34)
[2022-07-11] MEDS ORDERED: INSULIN GLARGINE 100 UNIT/ML SUBCUT ONE (14:00)
[2022-07-11] MEDS: INSULIN GLARGINE 100 UNIT/ML SUBCUT SCH (21:31)
[2022-07-11] MEDS: ENOXAPARIN 40 MG/0.4 ML SYRINGE SUBCUT SCH (21:32)
[2022-07-12] MEDS: PIPERACILLIN/TAZOBACTAM 3,375 MG in SODIUM CHLORIDE 0.9% 100 ML IV SCH ×3 (02:55→18:42)
[2022-07-12] MEDS: ALBUTEROL/IPRATROPIUM 3 ML NEB RESP TX SCH ×5 (03:34→19:59)
[2022-07-12 06:48] LABS: Basophils % 0.2 % (0.0-0.8); Eosinophils # 0.1 10*3/uL (0.0-0.87); Eosinophils % 0.5 % (0.00-10.9); Hematocrit 35.9 VOL% (42.0-52.0); Hemoglobin 10.8 GM/DL (14.0-18.0); Immature Granulocytes % 0.6 %; Immature Granulocytes Absolute 0.08 #; Lymphocytes % 30.8 % (21.2-54.2); Mean Corpuscular HGB Conc 30.1 GM/DL (32-36); Mean Corpuscular Volume 91.1 FL (87-102); Mean Platelet Volume 9.8 FL (9.6-12.0); Monocytes # 1.2 10*3/uL (0.11-0.8); Monocytes % 9.1 % (1.7-12.7); Neutrophils % 58.8 % (38.7-73.9); Platelet Count 280 T/CUMM (130-400); Red Blood Count 3.94 MC/CUMM (3.8-5.5); Red Cell Distribution Width 15.4 % (9.3-17.3); White Blood Count 13.1 T/CUMM (4-12)
[2022-07-12 07:08] LABS: Calcium 9.6 MG/DL (8.5-10.1); Osmolality,Calculated 279.1 MOS/KG (273-304)
[2022-07-12 07:11] LABS: Potassium 3.3 MMOL/L (3.5-5.1)
[2022-07-12] MEDS ORDERED: POTASSIUM CHLORIDE 20 MEQ TABLET PO ONE (07:28)
[2022-07-12 07:33] LABS: % Iron Saturation 29.8 % (18-50)
[2022-07-12] MEDS ORDERED: INSULIN GLARGINE 100 UNIT/ML SUBCUT SCH (09:00)
[2022-07-12] MEDS: predniSONE 20 MG TABLET PO SCH (09:39)
[2022-07-12] MEDS: METOPROLOL SUCCINATE XL 100 MG TABLET PO SCH ×2 (09:39→21:30)
[2022-07-12] MEDS: FLUTICASONE/SALMETEROL 500-50 DISKUS 14 DOSE INH SCH ×2 (09:39→21:31)
[2022-07-12] MEDS: THEOPHYLLINE ER (24 HR) 400 MG CAPSULE PO SCH (09:39)
[2022-07-12] MEDS: PANTOPRAZOLE 40 MG TABLET PO SCH (09:39)
[2022-07-12] MEDS: NYSTATIN 500,000 UNIT/5 ML UDCUP SWISH/SWAL SCH ×4 (09:39→21:30)
[2022-07-12] MEDS: INSULIN LISPRO 100 UNIT/ML SUBCUT SCH ×4 (09:40→21:31)
[2022-07-12] MEDS: traMADol 50 MG TABLET PO PRN (09:44)
[2022-07-12] MEDS: guaiFENesin 200 MG/10 ML UDCUP PO PRN (09:44)
[2022-07-12] MEDS: VANCOMYCIN INJ 1,250 MG in SODIUM CHLORIDE 0.9% 250 ML IV SCH ×2 (10:43→21:31)
[2022-07-12] MEDS: DIGOXIN 0.25 MG TABLET PO SCH (13:39)
[2022-07-12] MEDS: ENOXAPARIN 40 MG/0.4 ML SYRINGE SUBCUT SCH (21:31)
[2022-07-12] MEDS: INSULIN GLARGINE 100 UNIT/ML SUBCUT SCH (21:32)
[2022-07-13] MEDS: ALBUTEROL/IPRATROPIUM 3 ML NEB RESP TX SCH ×5 (00:35→14:02)
[2022-07-13] MEDS: PIPERACILLIN/TAZOBACTAM 3,375 MG in SODIUM CHLORIDE 0.9% 100 ML IV SCH (03:48)
[2022-07-13 05:36] LABS: Calcium 9.8 MG/DL (8.5-10.1); Osmolality,Calculated 287.8 MOS/KG (273-304); Potassium 4.2 MMOL/L (3.5-5.1)
[2022-07-13 05:43] LABS: Basophils % 0.2 % (0.0-0.8); Eosinophils # 0.1 10*3/uL (0.0-0.87); Eosinophils % 0.7 % (0.00-10.9); Hematocrit 35.5 VOL% (42.0-52.0); Immature Granulocytes % 1.2 %; Immature Granulocytes Absolute 0.16 #; Mean Corpuscular HGB Conc 29.9 GM/DL (32-36); Mean Corpuscular Volume 89.6 FL (87-102); Mean Platelet Volume 11.5 FL (9.6-12.0); Monocytes # 1.4 10*3/uL (0.11-0.8); Monocytes % 10.3 % (1.7-12.7); Neutrophils % 65.6 % (38.7-73.9); Red Blood Count 3.96 MC/CUMM (3.8-5.5); Red Cell Distribution Width 15.1 % (9.3-17.3); White Blood Count 13.8 T/CUMM (4-12)
[2022-07-13 05:50] LABS: Hemoglobin 10.6 GM/DL (14.0-18.0); Platelet Count 152 T/CUMM (130-400)
[2022-07-13] MEDS ORDERED: INSULIN GLARGINE 100 UNIT/ML SUBCUT SCH (09:00)
[2022-07-13] MEDS: METOPROLOL SUCCINATE XL 100 MG TABLET PO SCH (09:11)
[2022-07-13] MEDS: NYSTATIN 500,000 UNIT/5 ML UDCUP SWISH/SWAL SCH ×2 (09:11→13:04)
[2022-07-13] MEDS: FERROUS SULFATE 325 MG TABLET PO SCH (09:11)
[2022-07-13] MEDS: THEOPHYLLINE ER (24 HR) 400 MG CAPSULE PO SCH (09:11)
[2022-07-13] MEDS: PANTOPRAZOLE 40 MG TABLET PO SCH (09:11)
[2022-07-13] MEDS: predniSONE 20 MG TABLET PO SCH (09:11)
[2022-07-13] MEDS: FLUTICASONE/SALMETEROL 500-50 DISKUS 14 DOSE INH SCH (09:12)
[2022-07-13] MEDS: INSULIN LISPRO 100 UNIT/ML SUBCUT SCH ×2 (09:16→12:33)
[2022-07-13] MEDS: SODIUM CHLORIDE 0.9% 1,000 ML IV SCH (09:25)
[2022-07-13] MEDS ORDERED: LEVOFLOXACIN 750 MG TABLET PO SCH (11:00)
[2022-07-13] MEDS ORDERED: LINEZOLID 600 MG TABLET PO SCH (11:00)
[2022-07-13 12:14] VITALS: BP 146/66
[2022-07-13] MEDS: guaiFENesin 200 MG/10 ML UDCUP PO PRN (13:03)
[2022-07-13] MEDS: DIGOXIN 0.25 MG TABLET PO SCH (13:04)
== END 2022-07-13 14:35 | disposition swing bed (61) | DRG 190 ==
LOC: EDUNIT# → EDBD → N.EDINP 12:25 → N.ED 12:25 → SUATTDRO 15:37 → N.5E 18:31 → SUATTDRO 07-09 08:55
PROVIDERS: ADMIT Internal Medicine; ATTEND Hospitalist

== ENCOUNTER 2022-08-19 12:28 | Inpatient (IN) ==
[2022-08-19] MEDS ORDERED: ALBUTEROL NEB SOLN 5 MG/ML 20 ML/BOTTLE CONT NEB SCH (13:00)
[2022-08-19 13:03] LABS: Basophils # 0.1 10*3/uL (0.0-0.2); Basophils % 0.4 % (0.0-0.8); Eosinophils # 0.2 10*3/uL (0.0-0.87); Eosinophils % 0.6 % (0.00-10.9); Hematocrit 37.5 VOL% (42.0-52.0); Hemoglobin 11.4 GM/DL (14.0-18.0); Immature Granulocytes % 1.1 %; Lymphocytes # 4.2 10*3/uL (1.4-4.0); Lymphocytes % 15.6 % (21.2-54.2); Mean Corpuscular HGB Conc 30.4 GM/DL (32-36); Mean Corpuscular Volume 88.2 FL (87-102); Mean Platelet Volume 10.5 FL (9.6-12.0); Monocytes # 3.1 10*3/uL (0.11-0.8); Monocytes % 11.4 % (1.7-12.7); Neutrophils % 70.9 % (38.7-73.9); Platelet Count 323 T/CUMM (130-400); Red Blood Count 4.25 MC/CUMM (3.8-5.5); Red Cell Distribution Width 14.7 % (9.3-17.3); White Blood Count 26.9 T/CUMM (4-12)
[2022-08-19] MEDS ORDERED: PIPERACILLIN/TAZOBACTAM 3,375 MG in SODIUM CHLORIDE 0.9% 100 ML IV STA (13:14)
[2022-08-19 13:23] LABS: Albumin 2.7 G/DL (3.4-5.0); Bilirubin,Total 0.5 MG/DL (0.20-1.00); Calcium 10.4 MG/DL (8.5-10.1); Osmolality,Calculated 274.5 MOS/KG (273-304); Total Protein 6.3 G/DL (6.4-8.2)
[2022-08-19 13:36] LABS: Arterial Base Excess iSTAT 8 MMOL/L (-2.5-2.5); Arterial Bicarbonate iSTAT 33.5 MMOL/L (20-26); Arterial O2 Saturation iSTAT 92 % (95-100); Arterial PCO2 iSTAT 51 MM HG (35-48); Arterial PO2 iSTAT 65 MM HG (80-95); Arterial Total CO2 iSTAT 35 MMO/L (23-27); Arterial pH iSTAT 7.423 (7.35-7.45)
[2022-08-19 13:44] LABS: Band Neutrophils 1 % (0-10); Eosinophils 1 % (0-10); Lymphocytes 9 % (20-55); Total Cells Counted 100
[2022-08-19 13:45] LABS: Hypochromia 1+; Platelet Estimate Adequate
[2022-08-19 13:46] LABS: Polychromasia Slight
[2022-08-19] MEDS ORDERED: DOCUSATE SODIUM 100 MG CAPSULE PO PRN (14:09)
[2022-08-19] MEDS ORDERED: DEXTROSE 10% 250 ML BAG IV PRN (14:09)
[2022-08-19] MEDS ORDERED: ONDANSETRON 4 MG/2 ML VIAL IV PRN (14:09)
[2022-08-19] MEDS ORDERED: GLUCAGON 1 MG VIAL IM PRN (14:09)
[2022-08-19] MEDS ORDERED: DIGOXIN 0.25 MG TABLET PO ONE (15:50)
[2022-08-19] MEDS ORDERED: DIGOXIN 0.125 MG TABLET ONE (16:06)
[2022-08-19] MEDS: ENOXAPARIN 40 MG/0.4 ML SYRINGE SUBCUT SCH (16:07)
[2022-08-19] MEDS: PANTOPRAZOLE 40 MG TABLET PO SCH (16:08)
[2022-08-19 16:23] LABS: Bilirubin,Urine Negative (Negative); Blood, Urine Negative (Negative); Glucose,Urine (UA) Negative (Negative); Ketones,Urine Trace mg/dL (Negative); Nitrite,Urine Negative (Negative); Protein,Urine Trace mg/dL (Negative); Urine Appearance Clear (Clear); Urine Color Yellow (Yellow)
[2022-08-19 16:24] LABS: Bacteria,Urine Occasional /HPF (Few); Calcium Oxalate Crystals,Urine Few /HPF (Few); Mucus,Urine Few /LPF (Occasional); RBC,Urine 2 /HPF (0-4)
[2022-08-19] MEDS ORDERED: NITROGLYCERIN SL 0.4 MG TABLET SL PRN (16:24)
[2022-08-19] MEDS ORDERED: ALBUTEROL/IPRATROPIUM 3 ML NEB RESP TX PRN (16:47)
[2022-08-19] MEDS: ACETAMINOPHEN 325 MG TABLET PO PRN (16:58)
[2022-08-19] MEDS: THEOPHYLLINE ER (24 HR) 400 MG CAPSULE PO SCH (16:59)
[2022-08-19] MEDS: MONTELUKAST 10 MG TABLET PO SCH (16:59)
[2022-08-19] MEDS: ALBUTEROL/IPRATROPIUM 3 ML NEB RESP TX SCH (19:25)
[2022-08-19] MEDS: guaiFENesin/DM ER 600-30 MG TABLET PO SCH (21:29)
[2022-08-19] MEDS: methylPREDNISolone SOD SUC 125 MG/2 ML VIAL IV SCH (21:29)
[2022-08-19] MEDS: METOPROLOL SUCCINATE XL 100 MG TABLET PO SCH (21:29)
[2022-08-19] MEDS: PIPERACILLIN/TAZOBACTAM 3,375 MG in SODIUM CHLORIDE 0.9% 100 ML IV SCH (21:30)
[2022-08-20] MEDS: ALBUTEROL/IPRATROPIUM 3 ML NEB RESP TX SCH ×4 (00:15→18:50)
[2022-08-20 05:22] LABS: Basophils # 0.1 10*3/uL (0.0-0.2); Basophils % 0.2 % (0.0-0.8); Hematocrit 36.8 VOL% (42.0-52.0); Immature Granulocytes % 1.2 %; Immature Granulocytes Absolute 0.26 #; Lymphocytes % 4.4 % (21.2-54.2); Mean Corpuscular HGB Conc 29.9 GM/DL (32-36); Mean Corpuscular Volume 89.5 FL (87-102); Mean Platelet Volume 10.8 FL (9.6-12.0); Monocytes # 0.3 10*3/uL (0.11-0.8); Monocytes % 1.6 % (1.7-12.7); Neutrophils % 92.6 % (38.7-73.9); Platelet Count 321 T/CUMM (130-400); Red Blood Count 4.11 MC/CUMM (3.8-5.5); Red Cell Distribution Width 14.9 % (9.3-17.3); White Blood Count 21.9 T/CUMM (4-12)
[2022-08-20] MEDS: PIPERACILLIN/TAZOBACTAM 3,375 MG in SODIUM CHLORIDE 0.9% 100 ML IV SCH (05:27)
[2022-08-20 05:41] LABS: Calcium 10.2 MG/DL (8.5-10.1); Osmolality,Calculated 282.7 MOS/KG (273-304)
[2022-08-20 06:03] LABS: Lymphocytes 7 % (20-55); Platelet Estimate Normal; Total Cells Counted 100
[2022-08-20] MEDS: methylPREDNISolone SOD SUC 125 MG/2 ML VIAL IV SCH ×2 (09:44→20:25)
[2022-08-20] MEDS: INSULIN GLARGINE 100 UNIT/ML SUBCUT SCH (09:44)
[2022-08-20] MEDS: MONTELUKAST 10 MG TABLET PO SCH (09:45)
[2022-08-20] MEDS: METOPROLOL SUCCINATE XL 100 MG TABLET PO SCH ×2 (09:45→20:21)
[2022-08-20] MEDS: guaiFENesin/DM ER 600-30 MG TABLET PO SCH ×2 (09:45→20:21)
[2022-08-20] MEDS: THEOPHYLLINE ER (24 HR) 400 MG CAPSULE PO SCH (09:45)
[2022-08-20] MEDS: PANTOPRAZOLE 40 MG TABLET PO SCH (09:45)
[2022-08-20] MEDS: DIGOXIN 0.25 MG TABLET PO SCH (13:12)
[2022-08-20] MEDS: ENOXAPARIN 40 MG/0.4 ML SYRINGE SUBCUT SCH (13:32)
[2022-08-20] MEDS: cefTRIAXone 2,000 MG in SODIUM CHLORIDE 0.9% 100 ML IV SCH (14:29)
[2022-08-21] MEDS: ALBUTEROL/IPRATROPIUM 3 ML NEB RESP TX SCH ×4 (00:20→19:00)
[2022-08-21] MEDS: ACETAMINOPHEN 325 MG TABLET PO PRN (05:28)
[2022-08-21 05:40] LABS: Basophils # 0.1 10*3/uL (0.0-0.2); Basophils % 0.2 % (0.0-0.8); Hematocrit 34.7 VOL% (42.0-52.0); Hemoglobin 10.3 GM/DL (14.0-18.0); Immature Granulocytes % 2.9 %; Immature Granulocytes Absolute 0.73 #; Lymphocytes # 1.3 10*3/uL (1.4-4.0); Lymphocytes % 5.3 % (21.2-54.2); Mean Corpuscular HGB Conc 29.7 GM/DL (32-36); Mean Corpuscular Volume 90.6 FL (87-102); Mean Platelet Volume 10.6 FL (9.6-12.0); Monocytes # 1.2 10*3/uL (0.11-0.8); Monocytes % 4.7 % (1.7-12.7); Neutrophils % 86.9 % (38.7-73.9); Platelet Count 363 T/CUMM (130-400); Red Blood Count 3.83 MC/CUMM (3.8-5.5); Red Cell Distribution Width 14.6 % (9.3-17.3); White Blood Count 24.9 T/CUMM (4-12)
[2022-08-21 05:50] LABS: Calcium 10.5 MG/DL (8.5-10.1); Osmolality,Calculated 295.7 MOS/KG (273-304); Potassium 5.2 MMOL/L (3.5-5.1)
[2022-08-21 06:16] LABS: Anisocytosis Slight; Band Neutrophils 4 % (0-10); Lymphocytes 8 % (20-55); Macrocytosis Slight; Platelet Estimate Normal; Total Cells Counted 100
[2022-08-21] MEDS: methylPREDNISolone SOD SUC 125 MG/2 ML VIAL IV SCH (09:03)
[2022-08-21] MEDS: PANTOPRAZOLE 40 MG TABLET PO SCH (09:03)
[2022-08-21] MEDS: INSULIN GLARGINE 100 UNIT/ML SUBCUT SCH (09:04)
[2022-08-21] MEDS: METOPROLOL SUCCINATE XL 100 MG TABLET PO SCH ×2 (09:04→20:32)
[2022-08-21] MEDS: THEOPHYLLINE ER (24 HR) 400 MG CAPSULE PO SCH (09:04)
[2022-08-21] MEDS: MONTELUKAST 10 MG TABLET PO SCH (09:04)
[2022-08-21] MEDS: AZITHROMYCIN 250 MG TABLET PO SCH (09:04)
[2022-08-21] MEDS: guaiFENesin/DM ER 600-30 MG TABLET PO SCH ×2 (09:04→20:32)
[2022-08-21] MEDS: DIGOXIN 0.25 MG TABLET PO SCH (12:46)
[2022-08-21] MEDS ORDERED: POLYETHYLENE GLYCOL POWDER 17 GM PACK PO PRN (13:34)
[2022-08-21] MEDS ORDERED: ZOLEDRONIC ACID 4 MG/100 ML PREMIX IV ONE (14:00)
[2022-08-21] MEDS: MENTHOL/ZINC OXIDE OINT 71 GM JAR TOP SCH ×2 (15:18→20:32)
[2022-08-21] MEDS: ENOXAPARIN 40 MG/0.4 ML SYRINGE SUBCUT SCH (15:18)
[2022-08-21] MEDS: cefTRIAXone 2,000 MG in SODIUM CHLORIDE 0.9% 100 ML IV SCH (15:19)
[2022-08-21] MEDS: INSULIN LISPRO 100 UNIT/ML SUBCUT SCH ×2 (17:02→20:32)
[2022-08-21] MEDS: traMADol 50 MG TABLET PO PRN (20:32)
[2022-08-22] MEDS: ALBUTEROL/IPRATROPIUM 3 ML NEB RESP TX SCH ×4 (00:06→19:26)
[2022-08-22 06:18] LABS: Calcium 10.5 MG/DL (8.5-10.1); Osmolality,Calculated 291.3 MOS/KG (273-304); Phosphorous 1.4 MG/DL (2.5-4.9); Potassium 4.1 MMOL/L (3.5-5.1)
[2022-08-22 06:22] LABS: Parathyroid Hormone Intact 59.3 PG/ML (18.4-80.1)
[2022-08-22] MEDS ORDERED: methylPREDNISolone SOD SUC 40 MG/1 ML VIAL IV SCH (09:00)
[2022-08-22] MEDS: INSULIN LISPRO 100 UNIT/ML SUBCUT SCH ×4 (09:05→20:50)
[2022-08-22] MEDS: guaiFENesin/DM ER 600-30 MG TABLET PO SCH ×2 (09:06→20:45)
[2022-08-22] MEDS: AZITHROMYCIN 250 MG TABLET PO SCH (09:06)
[2022-08-22] MEDS: METOPROLOL SUCCINATE XL 100 MG TABLET PO SCH ×2 (09:06→20:44)
[2022-08-22] MEDS: THEOPHYLLINE ER (24 HR) 400 MG CAPSULE PO SCH (09:06)
[2022-08-22] MEDS: PANTOPRAZOLE 40 MG TABLET PO SCH (09:07)
[2022-08-22] MEDS: INSULIN GLARGINE 100 UNIT/ML SUBCUT SCH (09:07)
[2022-08-22] MEDS: MONTELUKAST 10 MG TABLET PO SCH (09:07)
[2022-08-22] MEDS ORDERED: ERGOCALCIFEROL 50,000 UNIT CAPSULE PO SCH (09:30)
[2022-08-22] MEDS: MENTHOL/ZINC OXIDE OINT 71 GM JAR TOP SCH ×2 (10:20→20:45)
[2022-08-22] MEDS ORDERED: FUROSEMIDE 20 MG/2 ML VIAL IV ONE (13:40)
[2022-08-22] MEDS: cefTRIAXone 2,000 MG in SODIUM CHLORIDE 0.9% 100 ML IV SCH (14:41)
[2022-08-22] MEDS: ENOXAPARIN 40 MG/0.4 ML SYRINGE SUBCUT SCH (14:42)
[2022-08-22] MEDS: DIGOXIN 0.25 MG TABLET PO SCH (14:42)
[2022-08-22] MEDS: FLUTICASONE/SALMETEROL 500-50 DISKUS 14 DOSE INH SCH ×2 (16:41→20:44)
[2022-08-22] MEDS: POTASSIUM PHOS/SOD PHOS POWDER 250 MG PACK PO SCH ×2 (16:41→20:45)
[2022-08-22] MEDS: methylPREDNISolone SOD SUC 40 MG/1 ML VIAL IV SCH (20:44)
[2022-08-22] MEDS: traMADol 50 MG TABLET PO PRN (20:50)
[2022-08-23] MEDS: ALBUTEROL/IPRATROPIUM 3 ML NEB RESP TX SCH ×3 (00:11→14:30)
[2022-08-23] MEDS: INSULIN LISPRO 100 UNIT/ML SUBCUT SCH ×3 (09:39→17:09)
[2022-08-23] MEDS: AZITHROMYCIN 250 MG TABLET PO SCH (09:40)
[2022-08-23] MEDS: methylPREDNISolone SOD SUC 40 MG/1 ML VIAL IV SCH (09:40)
[2022-08-23] MEDS: PANTOPRAZOLE 40 MG TABLET PO SCH (09:40)
[2022-08-23] MEDS: MENTHOL/ZINC OXIDE OINT 71 GM JAR TOP SCH (09:40)
[2022-08-23] MEDS: METOPROLOL SUCCINATE XL 100 MG TABLET PO SCH (09:40)
[2022-08-23] MEDS: guaiFENesin/DM ER 600-30 MG TABLET PO SCH (09:40)
[2022-08-23] MEDS: MONTELUKAST 10 MG TABLET PO SCH (09:40)
[2022-08-23] MEDS: THEOPHYLLINE ER (24 HR) 400 MG CAPSULE PO SCH (09:40)
[2022-08-23] MEDS: FLUTICASONE/SALMETEROL 500-50 DISKUS 14 DOSE INH SCH (09:40)
[2022-08-23] MEDS: POTASSIUM PHOS/SOD PHOS POWDER 250 MG PACK PO SCH ×2 (09:41→16:06)
[2022-08-23] MEDS: INSULIN GLARGINE 100 UNIT/ML SUBCUT SCH (09:41)
[2022-08-23] MEDS: DIGOXIN 0.25 MG TABLET PO SCH (14:15)
[2022-08-23] MEDS: ENOXAPARIN 40 MG/0.4 ML SYRINGE SUBCUT SCH (14:16)
[2022-08-23] MEDS: cefTRIAXone 2,000 MG in SODIUM CHLORIDE 0.9% 100 ML IV SCH (16:06)
[2022-08-23 16:08] VITALS: BP 160/73
== END 2022-08-23 19:06 | disposition home or self-care (01) | DRG 190 ==
LOC: N.ED 12:28 → SUATTDRO 14:01 → N.EDINP 14:01 → N.5E 15:26
PROVIDERS: ADMIT Internal Medicine; ATTEND Family Medicine